=== PATIENT | male | born 1950 | race Caucasian/White ===

== ENCOUNTER 2016-08-25 09:55 | Emergency (ER) | payer MEDICARE ==
[~2016-08-25 09:55] MED LIST: DIGO0.259 PO; FINA5TAB2 PO; FLOM5CAP PO; FURO40TA2 PO; LISI40TAB PO; LOVA40TA PO; METF1000 PO; VERA24TASA PO; WARF-23 PO
[2016-08-25 11:40] LABS: BASO # 0.1 K/mm3 (0.0-0.2); BASO % 0.9 % (0.0-1.0); EOS # 0.1 K/mm3 (0.0-0.50); EOS % 0.7 % (0.0-3.0); LARGE UNSTAINED CELL # 0.1 K/mm3 (0.0-0.4); LARGE UNSTAINED CELL % 0.8 % (0.0-4.0); LYMPH # 1.1 K/mm3 (1.5-4.5); LYMPH % 7.8 % (24.0-44.0); MEAN CORPUSCULAR HEMOGLOBIN 31.8 pg (27.0-33.0); MEAN CORPUSCULAR HGB CONC 34.8 g/dl (32.0-36.5); MEAN CORPUSCULAR VOLUME 91.3 fl (80.0-96.0); MONO # 0.5 K/mm3 (0.0-0.8); MONO % 3.7 % (0.0-5.0); NEUTROPHILS # 11.4 K/mm3 (1.8-7.7); NEUTROPHILS % 86.1 % (36.0-66.0); PLATELET COUNT, AUTOMATED 242 k/mm3 (150-450); RED CELL DISTRIBUTION WIDTH 14.7 % (11.5-14.5); WHITE BLOOD COUNT 13.3 K/mm3 (4.0-10.0)
[2016-08-25 11:58] LABS: CALCIUM LEVEL 8.4 MG/DL (8.8-10.2); CREATININE FOR GFR 1.56 MG/DL (0.70-1.30); GLOMERULAR FILTRATION RATE 47.6 (>49); POTASSIUM SERUM 3.7 MEQ/L (3.5-5.1)
--- NOTE | 2016-08-25 12:13 | REP ---
RIGHT HIP AND PELVIS, THREE VIEWS: HISTORY: Trauma. The patient is status post right hip arthroplasty. There is no acute fracture or dislocation. There is narrowing of the left hip joint space with associated osteophyte formation and sclerosis. IMPRESSION: There is no acute fracture dislocation. Signed by Brian Stein MD 08/25/2016 12:16 P
--- NOTE | 2016-08-25 12:13 | REP ---
RIGHT FEMUR, THREE VIEWS: HISTORY: Trauma. The patient is status post right hip arthroplasty. There is no acute fracture or dislocation. There is narrowing of the knee joint spaces with associated osteophyte formation. IMPRESSION: There is no acute fracture or dislocation. Signed by Brian Stein MD 08/25/2016 12:15 P
--- NOTE | 2016-08-25 12:16 | REP ---
Clinical: Pain and swelling . Technique: Al scale and color Doppler evaluation using linear high frequency transducer. Findings: Ultrasound examination of the right lower extremity deep venous structures from the common femoral vein to the popliteal vein demonstrates normal compressibility flow and wave patterns in response to respiration and augmentation. There is no evidence for deep venous thrombosis. Impression: No evidence for deep venous thrombosis. Signed by Wicho Ramírez MD 08/25/2016 12:07 P
[2016-08-25 13:49] LABS: INR 12.09
[2016-08-25] MEDS ORDERED: PHYTONADIONE 5 MG TAB As Ordered ONE (14:24)
--- NOTE | 2016-08-25 14:50 | EDDOCDS ---
Physician Documentation [facility] Name: Andres Mejia Age: 66 yrs Sex: Male : 1950 Arrival Date: 08/25/2016 Time: 09:55 Bed I2 / M2 Private MD: Vivi Odom Abdul Disposition: 08/25/16 14:12 Discharged to Home/Self Care. Impression: Strain of adductor muscle, fascia and tendon of right thigh, Abnormal coagulation profile - coumadin coagulopathy, suprtherapeutic INR of 12 without bleeding. - Condition is Stable. - Discharge Instructions: Muscle Strain. - Medication Reconciliation, Local Pharmacy Hours form. - Follow up: Vivi Odom; When: 2 - 3 days; Reason: Recheck today's complaints. Follow up: Emergency Department; When: As needed; Reason: bleeding, increased swelling of thigh. - Problem is new. - Symptoms are unchanged. - Notes: recommend ice and tylenol as needed for pain and swelling. your coumadin level was 12 today. stop coumadin at this time, get repeat bloodwork on Sunday and follow up with Dr. Odom regarding further recommendations. return to ER if you develop bleeding or worsening swelling of thigh Historical: - Allergies: SULFA (SULFONAMIDES); - Home Meds: 1. finasteride oral Unknown oral once daily 2. metformin 1,000 mg Oral tab 1 tab 2 times per day 3. Prozac 40 mg Oral cap 1 cap once daily 4. digoxin 250 mcg Oral tab once daily 5. lovastatin Unknown Oral once daily 6. Coumadin 7.5mg mon-sun. 5mg sat and sun Oral tab once daily 7. Flomax 0.4 mg Oral cp24 twice a day 8. furosemide 40 mg Oral tab 2 times per day 9. lisinopril 40 mg Oral tab once daily 10. potassium chloride 10 mEq Oral cpER once daily 11. verapamil 240 mg Oral TbER twice a day - PMHx: Atrial Fib; BPH; Hypertension; diabetic neuropathy; - PSHx: Cataract Surgery- Left; Hip Arthroplasty, Right; Cataract Surgery- Right; Hernia repair; ROTATOR CUFF LEFT; Colonoscopy; cardioversion; - Social history: No barriers to communication noted, The patient speaks fluent Sami, Speaks appropriately for age, Smoking status: Patient states former smoker of tobacco. - Family history: Not pertinent. - : The pt / caregiver states he / she is on anticoagulants: coumadin. Home medication list is obtained from the patient. - Exposure Risk Screening:: None identified. Vital Signs: 08/25 09:56 BP 106 / 48; Pulse 74; Resp 18; Temp 97.0(O); Pulse Ox 100% on R/A; Weight 105.23 kg / ct3 231.99 lbs (R); Height 6 ft. 0 in. (182.88 cm) (R); Pain 2/10; 11:13 BP 97 / 53 RA; jmk 11:13 BP 94 / 54 LA; jmk 13:10 BP 126 / 60; Pulse 58; Resp 16; Temp 96.8; Pulse Ox 98% ; jmk 14:49 BP 123 / 60; Pulse 84; Resp 18; Temp 98.5(O); Pulse Ox 99% on R/A; kc3 09:56 Body Mass Index 31.46 (105.23 kg, 182.88 cm) ct3 MDM: 10:34 Financial registration complete. lg 10:39 Undress patient appropriately for examination ordered. ar2 11:12 IV Saline Lock ordered. ar2 11:12 NS 0.9% 1000 ml IV at bolus once ordered. ar2 11:12 Misc. Nursing Order ordered. ar2 11:14 US Lower Extremity R/O DVT Ordered. EDMS 11:14 Hip,AP,LAT to include Pelvis Ordered. EDMS 11:14 Femur Ordered. EDMS 11:15 CBC with Diff Ordered. EDMS 11:15 MED Profile Ordered. EDMS 11:15 Creatine Phosphokinase Ordered. EDMS 11:15 PT/INR Ordered. EDMS 12:31 [facility] [place] Agreement was scanned into [employer] and attached to record. lg 12:57 CBC with Diff Reviewed. ar2 12:57 MED Profile Reviewed. ar2 12:57 Creatine Phosphokinase Reviewed. ar2 13:01 Vital Signs ordered. ar2 13:48 Hip,AP,LAT to include Pelvis Reviewed. ar2 13:48 Femur Reviewed. ar2 13:48 US Lower Extremity R/O DVT Reviewed. ar2 14:11 Phytonadione 5 mg PO once ordered. ar2 14:11 PT/INR Reviewed. ar2 Administered Medications: 11:35 Drug: NS 0.9% 1000 ml Route: IV; Rate: bolus; Site: right hand; sherin 14:33 Drug: Phytonadione 5 mg [phytonadione (vitamin K1) 5 mg tablet (1 tabs)] Route: PO; kc3 Signatures: Dispatcher [employer] EDFeli Mckeon, RN RN srm Jay Mendoza, Reg Reg lg Kadeem Cardenas, PAMary PAMary ma2 Salome Melchor RN RN kc3 Matteo Jackson RN The chart was reviewed and I authenticate all verbal orders and agree with the evaluation and treatment provided.Attachments: 12:31 [facility] Payment Agreement lg MTDD
--- NOTE | 2016-08-25 14:50 | EDDOCDS ---
Nurse's Notes [facility] Name: Andres Mejia Age: 66 yrs Sex: Male : 1950 Arrival Date: 08/25/2016 Time: 09:55 Bed I2 / M2 Private MD: Vivi Louise Abdul Diagnosis: Strain of adductor muscle, fascia and tendon of right thigh;Abnormal coagulation profile-coumadin coagulopathy, suprtherapeutic INR of 12 without bleeding Presentation: 08/25 10:03 Presenting complaint: Patient states: right upper thigh pain since last night. no srm injury. sent here from dr louise's office to r/o DVT. Adult Sepsis Screening: The patient does not have new or worsening altered mentation. Patient's respiratory rate is less than 22. Systolic blood pressure is greater than 100. Patient has a qSOFA score of 0- Negative Sepsis Screen. Suicide/Homicide risk assessment- the patient denies having any suicidal and/or homicidal ideations and does not present with any other emotional, behavioral or mental health complaints. Status: Patient is not a patient services representative or dependent. Transition of care: patient was received from a primary care office; dr louise. 10:03 Acuity: CHRISTINE Level 3 srm 10:03 Method Of Arrival: Wheelchair srm Triage Assessment: 10:08 General: Appears in no apparent distress, Behavior is appropriate for age, cooperative. srm Pain: Pain currently is 3 out of 10 on a pain scale. Historical: - Allergies: SULFA (SULFONAMIDES); - Home Meds: 1. finasteride oral Unknown oral once daily 2. metformin 1,000 mg Oral tab 1 tab 2 times per day 3. Prozac 40 mg Oral cap 1 cap once daily 4. digoxin 250 mcg Oral tab once daily 5. lovastatin Unknown Oral once daily 6. Coumadin 7.5mg mon-fri. 5mg sat and sun Oral tab once daily 7. Flomax 0.4 mg Oral cp24 twice a day 8. furosemide 40 mg Oral tab 2 times per day 9. lisinopril 40 mg Oral tab once daily 10. potassium chloride 10 mEq Oral cpER once daily 11. verapamil 240 mg Oral TbER twice a day - PMHx: Atrial Fib; BPH; Hypertension; diabetic neuropathy; - PSHx: Cataract Surgery- Left; Hip Arthroplasty, Right; Cataract Surgery- Right; Hernia repair; ROTATOR CUFF LEFT; Colonoscopy; cardioversion; - Social history: No barriers to communication noted, The patient speaks fluent Luxembourgish, Speaks appropriately for age, Smoking status: Patient states former smoker of tobacco. - Family history: Not pertinent. - : The pt / caregiver states he / she is on anticoagulants: coumadin. Home medication list is obtained from the patient. - Exposure Risk Screening:: None identified. Screenin:52 Screening information is obtained from the patient. Fall risk: At risk due to gait kc3 disturbance, The following interventions are performed due to a positive Fall Risk Screen: Fall Risk is added to Special Handling on the patient Summary Screen. A Fall Risk Bracelet was applied to the patient. Side Rails are placed in the up position. A Call Jacques is given with instruction to call for help when getting out of bed. Fall Alert bracelet is placed on the patient. Assistance ADL's: requires no assistance with activities of daily living. Abuse/DV Screen: The patient / caregiver reports he/she is: not in a situation that causes fear, pain or injury. Nutritional screening: No deficits noted. Advance Directives: Currently, there is no health care proxy. home support is adequate. Assessment: 10:50 General: Appears in no apparent distress, comfortable, Behavior is appropriate for age, kc3 cooperative. Pain: Aggravated by weight bearing. Pain: Location: right leg Pain currently is 5 out of 10 on a pain scale. Neurological: Level of Consciousness is awake, alert, obeys commands, Oriented to person, place, time. Respiratory: Respiratory effort is even, unlabored, Respiratory pattern is regular, symmetrical. Derm: Skin is pink, warm & dry. Musculoskeletal: Circulation, motion, and sensation intact. 11:35 General: Appears Doppler pulses x 2 intact to right foot.. jmk 12:29 General: Appears in no apparent distress, comfortable, Behavior is appropriate for age, kc3 cooperative, Pt resting on stretcher with no complaints at this time. . Neurological: Level of Consciousness is awake, alert, obeys commands, Oriented to person, place, time. Respiratory: Respiratory effort is even, unlabored. Derm: Skin is pink, warm & dry. Musculoskeletal: Circulation, motion, and sensation intact. 13:11 General: Appears ambulated to bathroom with steady gait.. reports pain level as 2/10. jmk tolerant of activity.. 14:00 General: Appears in no apparent distress, comfortable, Behavior is appropriate for age, kc3 cooperative. Pain: Location: right leg. Neurological: Level of Consciousness is awake, alert, obeys commands, Oriented to person, place, time. Respiratory: Respiratory effort is even, unlabored. Derm: Skin is pink, warm & dry. Musculoskeletal: Circulation, motion, and sensation intact. 14:48 General: Appears in no apparent distress, comfortable, Behavior is appropriate for age, kc3 cooperative. Pain:. Neurological: Level of Consciousness is awake, alert, obeys commands, Oriented to person, place, time. Respiratory: Respiratory effort is even, unlabored. Derm: Skin is pink, warm & dry. Vital Signs: 09:56 BP 106 / 48; Pulse 74; Resp 18; Temp 97.0(O); Pulse Ox 100% on R/A; Weight 105.23 kg ct3 (R); Height 6 ft. 0 in. (182.88 cm) (R); Pain 2/10; 11:13 BP 97 / 53 RA; jmk 11:13 BP 94 / 54 LA; jmk 13:10 BP 126 / 60; Pulse 58; Resp 16; Temp 96.8; Pulse Ox 98% ; jmk 14:49 BP 123 / 60; Pulse 84; Resp 18; Temp 98.5(O); Pulse Ox 99% on R/A; kc3 09:56 Body Mass Index 31.46 (105.23 kg, 182.88 cm) ct3 Vitals: 09:56 Log In Time: August 25, 2016 at 09:53. RN notified that patient meets Red Flag ct3 criteria. ED Course: 09:56 Patient visited by Poonam Milian PCA. ct3 09:56 Vivi Louise is Private Physician. ct3 09:56 Patient moved to Waiting ct3 09:59 Patient moved to Pre RCE ct3 10:04 Triage Initiated srm 10:08 Patient moved to Triage 1 srm 10:20 Kadeem Cardenas PA-C is PHCP. ar2 10:20 Mary Mota MD is Attending Physician. ar2 10:22 Patient visited by Kadeem Cardenas PA-C. ar2 10:42 Patient moved to I2 / M2 srm 10:52 The patient / caregiver is instructed regarding the plan of care and ED course. kc3 10:53 Patient visited by Salome Melchor,JORGE. kc3 11:34 Patient visited by Salome Melchor RN. kc3 11:34 CBC with Diff Sent. jmk 11:34 MED Profile Sent. jmk 11:34 Creatine Phosphokinase Sent. jmk 11:34 PT/INR Sent. jmk 11:34 Inserted saline lock: 20 gauge in right hand. jmk 11:52 Patient moved to Ultrasound am10 12:00 Patient moved to I2 / M2 kc3 12:30 Patient visited by Salome Melchor RN. kc3 12:31 Patient name changed from Andres\Pablo\Angelina\S\Jackie\S\ to Andres\Pablo\Sandeep\S\Jackie. EDMS 12:31 [facility] Payment Agreement was scanned into [employer] and attached to record. lg 12:58 Hip,AP,LAT to include Pelvis Returned. EDMS 12:58 Femur Returned. EDMS 12:58 US Lower Extremity R/O DVT Returned. EDMS 13:12 Patient visited by Matteo Jackson RN. jmk 14:11 Vivi Louise is Referral Physician. ar2 14:49 Discontinued IV lock intact, bleeding controlled, pressure dressing applied, No kc3 redness/swelling at site. No procedures done that require assistance. Administered Medications: 11:35 Drug: NS 0.9% 1000 ml Route: IV; Rate: bolus; Site: right hand; jmk 14:33 Drug: Phytonadione 5 mg [phytonadione (vitamin K1) 5 mg tablet (1 tabs)] Route: PO; kc3 Order Results: Lab Order: CBC with Diff; SPEC'M 08/25/16 11:16 Test: WHITE BLOOD COUNT; Value: 13.3; Range: 4.0-10.0; Abnormal: Above high normal; Units: K/mm3; Status: F Test: RED BLOOD COUNT; Value: 3.65; Range: 4.30-6.10; Abnormal: Below low normal; Units: M/mm3; Status: F Test: HEMOGLOBIN; Value: 11.6; Range: 14.0-18.0; Abnormal: Below low normal; Units: g/dl; Status: F Test: HEMATOCRIT; Value: 33.4; Range: 42.0-52.0; Abnormal: Below low normal; Units: %; Status: F Test: MEAN CORPUSCULAR VOLUME; Value: 91.3; Range: 80.0-96.0; Units: fl; Status: F Test: MEAN CORPUSCULAR HEMOGLOBIN; Value: 31.8; Range: 27.0-33.0; Units: pg; Status: F Test: MEAN CORPUSCULAR HGB CONC; Value: 34.8; Range: 32.0-36.5; Units: g/dl; Status: F Test: RED CELL DISTRIBUTION WIDTH; Value: 14.7; Range: 11.5-14.5; Abnormal: Above high normal; Units: %; Status: F Test: PLATELET COUNT, AUTOMATED; Value: 242; Range: 150-450; Units: k/mm3; Status: F Test: NEUTROPHILS %; Value: 86.1; Range: 36.0-66.0; Abnormal: Above high normal; Units: %; Status: F Test: LYMPH %; Value: 7.8; Range: 24.0-44.0; Abnormal: Below low normal; Units: %; Status: F Test: MONO %; Value: 3.7; Range: 0.0-5.0; Units: %; Status: F Test: EOS %; Value: 0.7; Range: 0.0-3.0; Units: %; Status: F Test: BASO %; Value: 0.9; Range: 0.0-1.0; Units: %; Status: F Test: LARGE UNSTAINED CELL %; Value: 0.8; Range: 0.0-4.0; Units: %; Status: F Test: NEUTROPHILS #; Value: 11.4; Range: 1.8-7.7; Abnormal: Above high normal; Units: K/mm3; Status: F Test: LYMPH #; Value: 1.1; Range: 1.5-4.5; Abnormal: Below low normal; Units: K/mm3; Status: F Test: MONO #; Value: 0.5; Range: 0.0-0.8; Units: K/mm3; Status: F Test: EOS #; Value: 0.1; Range: 0.0-0.50; Units: K/mm3; Status: F Test: BASO #; Value: 0.1; Range: 0.0-0.2; Units: K/mm3; Status: F Test: LARGE UNSTAINED CELL #; Value: 0.1; Range: 0.0-0.4; Units: K/mm3; Status: F Lab Order: MED Profile; SPEC'08/25/16 11:16 Test: GLUCOSE, FASTING; Value: 103; Range: 80-110; Units: MG/DL; Status: F Test: BLOOD UREA NITROGEN; Value: 19; Range: 7-18; Abnormal: Above high normal; Units: MG/DL; Status: F Test: CREATININE FOR GFR; Value: 1.56; Range: 0.70-1.30; Abnormal: Above high normal; Units: MG/DL; Status: F Test: GLOMERULAR FILTRATION RATE; Value: 47.6; Range: >49; Abnormal: Below low normal; Status: F Test: SODIUM LEVEL; Value: 142; Range: 136-145; Units: MEQ/L; Status: F Test: POTASSIUM SERUM; Value: 3.7; Range: 3.5-5.1; Units: MEQ/L; Status: F Test: CHLORIDE LEVEL; Value: 115; Range: 98-107; Abnormal: Above high normal; Units: MEQ/L; Status: F Test: CARBON DIOXIDE LEVEL; Value: 21; Range: 21-32; Units: MEQ/L; Status: F Test: ANION GAP; Value: 6; Range: 8-16; Abnormal: Below low normal; Units: MEQ/L; Status: F Test: CALCIUM LEVEL; Value: 8.4; Range: 8.8-10.2; Abnormal: Below low normal; Units: MG/DL; Status: F Test Note: ; Units are mL/min/1.73 m2 Chronic Kidney Disease Staging per NKF: Stage I & II GFR >=60 Normal to Mildly Decreased Stage III GFR 30-59 Moderately Decreased Stage IV GFR 15-29 Severely Decreased Stage V GFR <15 Very Little GFR Left ESRD GFR <15 on COIL MAKER Lab Order: Creatine Phosphokinase; SPEC' 08/25/16 11:16 Test: CPK CREATINE PHOSPHOKINASE; Value: 72; Range: 39-308; Units: U/L; Status: F Lab Order: PT/INR; SPEC'08/25/16 11:16 Test: PROTHROMBIN TIME; Value: 91.8; Range: 12.3-14.5; Abnormal: Above high normal; Units: SECONDS; Status: F Test: INR; Value: 12.09; Abnormal: Above upper panic limits; Status: F Test Note: ; THERAPUTIC HUMAN INR VALUES INDICATIONS NORMAL RANGES PROPHYLAXIS/TREATMENT OF: VENOUS THROMBOSIS 2.0-3.0 PULMONARY EMBOLISM 2.0-3.0 PREVENTION OF SYSTEMIC EMBOLISM FROM: TISSUE HEART VALVES 2.0-3.0 ACUTE MYOCARDIAL INFARCTION 2.0-3.0 VALVULAR HEART DISEASE 2.0-3.0 ATRIAL FIBRILLATION 2.0-3.0 MECHANICAL VALVES(HIGH RISK) 2.5-3.5 RECURRENT MYOCARDIAL INFARCTION 2.5-3.5 Radiology Order: Hip,AP,LAT to include Pelvis Test: Hip,AP,LAT to include Pelvis REASON FOR EXAMINATION: recent trauma; RIGHT HIP AND PELVIS, THREE VIEWS:; ; HISTORY: Trauma.; ; The patient is status post right hip arthroplasty. There is no acute fracture or; dislocation. There is narrowing of the left hip joint space with associated; osteophyte formation and sclerosis.; ; IMPRESSION:; ; There is no acute fracture dislocation.; ; ; Signed by; Brian Stein MD 08/25/2016 12:16 P; Radiology Order: Femur Test: Femur REASON FOR EXAMINATION: recent trauma, mid thigh pain; RIGHT FEMUR, THREE VIEWS:; ; HISTORY: Trauma.; ; The patient is status post right hip arthroplasty. There is no acute fracture or; dislocation. There is narrowing of the knee joint spaces with associated; osteophyte formation.; ; IMPRESSION:; ; There is no acute fracture or dislocation.; ; ; Signed by; Brian Stein MD 08/25/2016 12:15 P; Radiology Order: US Lower Extremity R/O DVT Test: US Lower Extremity R/O DVT REASON FOR EXAMINATION: pain and swelling; Clinical: Pain and swelling .; ; Technique: Al scale and color Doppler evaluation using linear high frequency; transducer.; ; Findings:; Ultrasound examination of the right lower extremity deep venous structures from; the common femoral vein to the popliteal vein demonstrates normal compressibility; flow and wave patterns in response to respiration and augmentation. There is no; evidence for deep venous thrombosis.; ; Impression:; No evidence for deep venous thrombosis.; ; ; Signed by; Wicho Ramírez MD 08/25/2016 12:07 P; Outcome: 14:12 Discharge ordered by Provider. ar2 14:48 Discharge Assessment: Patient awake, alert and oriented x 3. No cognitive and/or kc3 functional deficits noted. Patient verbalized understanding of disposition instructions. patient administered narcotics - no. The following High Risk Discharge criteria are identified: None. Condition: stable. Discharge instructions given to patient, Instructed on discharge instructions, follow up and referral plans. Demonstrated understanding of instructions, Pt was receptive of discharge instructions/ teaching. Ultrasound Study completed. Property :Personal belongings accompany Pt. 14:49 Patient left the ED. kc3 Signatures: Dispatcher [employer] EDMS Matteo Jackson,RN RN Feli Boss RN RN srm Jay Mendoza, Reg Reg lg Sarah Clark am10 Kadeem Cardenas, PA-C PA-C ar2 Poonam Milian, OUTPATIENT CODER OUTPATIENT CODER ct3 Salome Melchor,RN RN kc3 Corrections: (The following items were deleted from the chart) 10:53 10:50 Pain: Location: right quadriceps Pain currently is 5 out of 10 on a pain scale. kc3 kc3 MTDD
--- NOTE | 2016-08-27 15:51 | EDDOCDS ---
Nurse's Notes [facility] Name: Andres Mejia Age: 66 yrs Sex: Male : 1950 Arrival Date: 08/25/2016 Time: 09:55 Bed I2 / M2 Private MD: Vivi Louise Abdul Diagnosis: Strain of adductor muscle, fascia and tendon of right thigh;Abnormal coagulation profile-coumadin coagulopathy, suprtherapeutic INR of 12 without bleeding Presentation: 08/25 10:03 Presenting complaint: Patient states: right upper thigh pain since last night. no srm injury. sent here from dr louise's office to r/o DVT. Adult Sepsis Screening: The patient does not have new or worsening altered mentation. Patient's respiratory rate is less than 22. Systolic blood pressure is greater than 100. Patient has a qSOFA score of 0- Negative Sepsis Screen. Suicide/Homicide risk assessment- the patient denies having any suicidal and/or homicidal ideations and does not present with any other emotional, behavioral or mental health complaints. Status: Patient is not a servicer coin machines or dependent. Transition of care: patient was received from a primary care office; dr louise. 10:03 Acuity: CHRISTINE Level 3 srm 10:03 Method Of Arrival: Wheelchair srm Triage Assessment: 10:08 General: Appears in no apparent distress, Behavior is appropriate for age, cooperative. srm Pain: Pain currently is 3 out of 10 on a pain scale. Historical: - Allergies: SULFA (SULFONAMIDES); - Home Meds: 1. finasteride oral Unknown oral once daily 2. metformin 1,000 mg Oral tab 1 tab 2 times per day 3. Prozac 40 mg Oral cap 1 cap once daily 4. digoxin 250 mcg Oral tab once daily 5. lovastatin Unknown Oral once daily 6. Coumadin 7.5mg mon-fri. 5mg sat and sun Oral tab once daily 7. Flomax 0.4 mg Oral cp24 twice a day 8. furosemide 40 mg Oral tab 2 times per day 9. lisinopril 40 mg Oral tab once daily 10. potassium chloride 10 mEq Oral cpER once daily 11. verapamil 240 mg Oral TbER twice a day - PMHx: Atrial Fib; BPH; Hypertension; diabetic neuropathy; - PSHx: Cataract Surgery- Left; Hip Arthroplasty, Right; Cataract Surgery- Right; Hernia repair; ROTATOR CUFF LEFT; Colonoscopy; cardioversion; - Social history: No barriers to communication noted, The patient speaks fluent Slovak, Speaks appropriately for age, Smoking status: Patient states former smoker of tobacco. - Family history: Not pertinent. - : The pt / caregiver states he / she is on anticoagulants: coumadin. Home medication list is obtained from the patient. - Exposure Risk Screening:: None identified. Screenin:52 Screening information is obtained from the patient. Fall risk: At risk due to gait kc3 disturbance, The following interventions are performed due to a positive Fall Risk Screen: Fall Risk is added to Special Handling on the patient Summary Screen. A Fall Risk Bracelet was applied to the patient. Side Rails are placed in the up position. A Call Jacques is given with instruction to call for help when getting out of bed. Fall Alert bracelet is placed on the patient. Assistance ADL's: requires no assistance with activities of daily living. Abuse/DV Screen: The patient / caregiver reports he/she is: not in a situation that causes fear, pain or injury. Nutritional screening: No deficits noted. Advance Directives: Currently, there is no health care proxy. home support is adequate. Assessment: 10:50 General: Appears in no apparent distress, comfortable, Behavior is appropriate for age, kc3 cooperative. Pain: Aggravated by weight bearing. Pain: Location: right leg Pain currently is 5 out of 10 on a pain scale. Neurological: Level of Consciousness is awake, alert, obeys commands, Oriented to person, place, time. Respiratory: Respiratory effort is even, unlabored, Respiratory pattern is regular, symmetrical. Derm: Skin is pink, warm & dry. Musculoskeletal: Circulation, motion, and sensation intact. 11:35 General: Appears Doppler pulses x 2 intact to right foot.. jmk 12:29 General: Appears in no apparent distress, comfortable, Behavior is appropriate for age, kc3 cooperative, Pt resting on stretcher with no complaints at this time. . Neurological: Level of Consciousness is awake, alert, obeys commands, Oriented to person, place, time. Respiratory: Respiratory effort is even, unlabored. Derm: Skin is pink, warm & dry. Musculoskeletal: Circulation, motion, and sensation intact. 13:11 General: Appears ambulated to bathroom with steady gait.. reports pain level as 2/10. jmk tolerant of activity.. 14:00 General: Appears in no apparent distress, comfortable, Behavior is appropriate for age, kc3 cooperative. Pain: Location: right leg. Neurological: Level of Consciousness is awake, alert, obeys commands, Oriented to person, place, time. Respiratory: Respiratory effort is even, unlabored. Derm: Skin is pink, warm & dry. Musculoskeletal: Circulation, motion, and sensation intact. 14:48 General: Appears in no apparent distress, comfortable, Behavior is appropriate for age, kc3 cooperative. Pain:. Neurological: Level of Consciousness is awake, alert, obeys commands, Oriented to person, place, time. Respiratory: Respiratory effort is even, unlabored. Derm: Skin is pink, warm & dry. Vital Signs: 09:56 BP 106 / 48; Pulse 74; Resp 18; Temp 97.0(O); Pulse Ox 100% on R/A; Weight 105.23 kg ct3 (R); Height 6 ft. 0 in. (182.88 cm) (R); Pain 2/10; 11:13 BP 97 / 53 RA; jmk 11:13 BP 94 / 54 LA; jmk 13:10 BP 126 / 60; Pulse 58; Resp 16; Temp 96.8; Pulse Ox 98% ; jmk 14:49 BP 123 / 60; Pulse 84; Resp 18; Temp 98.5(O); Pulse Ox 99% on R/A; kc3 09:56 Body Mass Index 31.46 (105.23 kg, 182.88 cm) ct3 Vitals: 09:56 Log In Time: August 25, 2016 at 09:53. RN notified that patient meets Red Flag ct3 criteria. ED Course: 09:56 Patient visited by Poonam Milian PCA. ct3 09:56 Vivi Louise is Private Physician. ct3 09:56 Patient moved to Waiting ct3 09:59 Patient moved to Pre RCE ct3 10:04 Triage Initiated srm 10:08 Patient moved to Triage 1 srm 10:20 Kadeem Cardenas PA-C is PHCP. ar2 10:20 Mary Mota MD is Attending Physician. ar2 10:22 Patient visited by Kadeem Cardenas PA-C. ar2 10:42 Patient moved to I2 / M2 srm 10:52 The patient / caregiver is instructed regarding the plan of care and ED course. kc3 10:53 Patient visited by Salome Melchor,JORGE. kc3 11:34 Patient visited by Salome Melchor RN. kc3 11:34 CBC with Diff Sent. jmk 11:34 MED Profile Sent. jmk 11:34 Creatine Phosphokinase Sent. jmk 11:34 PT/INR Sent. jmk 11:34 Inserted saline lock: 20 gauge in right hand. jmk 11:52 Patient moved to Ultrasound am10 12:00 Patient moved to I2 / M2 kc3 12:30 Patient visited by Salome Melchor,JORGE. kc3 12:31 Patient name changed from Andres\Pablo\Angelina\S\Jackie\S\ to Andres\Pablo\Sandeep\S\Jackie. EDMS 12:31 [facility] [place] Payment Agreement was scanned into [employer] and attached to record. lg 12:58 Hip,AP,LAT to include Pelvis Returned. EDMS 12:58 Femur Returned. EDMS 12:58 US Lower Extremity R/O DVT Returned. EDMS 13:12 Patient visited by Matteo Jackson RN. jmk 14:11 Vivi Louise is Referral Physician. ar2 14:49 Discontinued IV lock intact, bleeding controlled, pressure dressing applied, No kc3 redness/swelling at site. No procedures done that require assistance. 08/26 08:57 T-Sheet-- Draft Copy was scanned into [employer] and attached to record. gb 08:58 Radiology Report was scanned into [employer] and attached to record. gb Administered Medications: 08/25 11:35 Drug: NS 0.9% 1000 ml Route: IV; Rate: bolus; Site: right hand; jmk 14:33 Drug: Phytonadione 5 mg [phytonadione (vitamin K1) 5 mg tablet (1 tabs)] Route: PO; kc3 Order Results: Lab Order: CBC with Diff; SPEC'M 08/25/16 11:16 Test: WHITE BLOOD COUNT; Value: 13.3; Range: 4.0-10.0; Abnormal: Above high normal; Units: K/mm3; Status: F Test: RED BLOOD COUNT; Value: 3.65; Range: 4.30-6.10; Abnormal: Below low normal; Units: M/mm3; Status: F Test: HEMOGLOBIN; Value: 11.6; Range: 14.0-18.0; Abnormal: Below low normal; Units: g/dl; Status: F Test: HEMATOCRIT; Value: 33.4; Range: 42.0-52.0; Abnormal: Below low normal; Units: %; Status: F Test: MEAN CORPUSCULAR VOLUME; Value: 91.3; Range: 80.0-96.0; Units: fl; Status: F Test: MEAN CORPUSCULAR HEMOGLOBIN; Value: 31.8; Range: 27.0-33.0; Units: pg; Status: F Test: MEAN CORPUSCULAR HGB CONC; Value: 34.8; Range: 32.0-36.5; Units: g/dl; Status: F Test: RED CELL DISTRIBUTION WIDTH; Value: 14.7; Range: 11.5-14.5; Abnormal: Above high normal; Units: %; Status: F Test: PLATELET COUNT, AUTOMATED; Value: 242; Range: 150-450; Units: k/mm3; Status: F Test: NEUTROPHILS %; Value: 86.1; Range: 36.0-66.0; Abnormal: Above high normal; Units: %; Status: F Test: LYMPH %; Value: 7.8; Range: 24.0-44.0; Abnormal: Below low normal; Units: %; Status: F Test: MONO %; Value: 3.7; Range: 0.0-5.0; Units: %; Status: F Test: EOS %; Value: 0.7; Range: 0.0-3.0; Units: %; Status: F Test: BASO %; Value: 0.9; Range: 0.0-1.0; Units: %; Status: F Test: LARGE UNSTAINED CELL %; Value: 0.8; Range: 0.0-4.0; Units: %; Status: F Test: NEUTROPHILS #; Value: 11.4; Range: 1.8-7.7; Abnormal: Above high normal; Units: K/mm3; Status: F Test: LYMPH #; Value: 1.1; Range: 1.5-4.5; Abnormal: Below low normal; Units: K/mm3; Status: F Test: MONO #; Value: 0.5; Range: 0.0-0.8; Units: K/mm3; Status: F Test: EOS #; Value: 0.1; Range: 0.0-0.50; Units: K/mm3; Status: F Test: BASO #; Value: 0.1; Range: 0.0-0.2; Units: K/mm3; Status: F Test: LARGE UNSTAINED CELL #; Value: 0.1; Range: 0.0-0.4; Units: K/mm3; Status: F Lab Order: MED Profile; SPEC'M 08/25/16 11:16 Test: GLUCOSE, FASTING; Value: 103; Range: 80-110; Units: MG/DL; Status: F Test: BLOOD UREA NITROGEN; Value: 19; Range: 7-18; Abnormal: Above high normal; Units: MG/DL; Status: F Test: CREATININE FOR GFR; Value: 1.56; Range: 0.70-1.30; Abnormal: Above high normal; Units: MG/DL; Status: F Test: GLOMERULAR FILTRATION RATE; Value: 47.6; Range: >49; Abnormal: Below low normal; Status: F Test: SODIUM LEVEL; Value: 142; Range: 136-145; Units: MEQ/L; Status: F Test: POTASSIUM SERUM; Value: 3.7; Range: 3.5-5.1; Units: MEQ/L; Status: F Test: CHLORIDE LEVEL; Value: 115; Range: 98-107; Abnormal: Above high normal; Units: MEQ/L; Status: F Test: CARBON DIOXIDE LEVEL; Value: 21; Range: 21-32; Units: MEQ/L; Status: F Test: ANION GAP; Value: 6; Range: 8-16; Abnormal: Below low normal; Units: MEQ/L; Status: F Test: CALCIUM LEVEL; Value: 8.4; Range: 8.8-10.2; Abnormal: Below low normal; Units: MG/DL; Status: F Test Note: ; Units are mL/min/1.73 m2 Chronic Kidney Disease Staging per NKF: Stage I & II GFR >=60 Normal to Mildly Decreased Stage III GFR 30-59 Moderately Decreased Stage IV GFR 15-29 Severely Decreased Stage V GFR <15 Very Little GFR Left ESRD GFR <15 on [employer] Lab Order: Creatine Phosphokinase; SPEC'M 08/25/16 11:16 Test: CPK CREATINE PHOSPHOKINASE; Value: 72; Range: 39-308; Units: U/L; Status: F Lab Order: PT/INR; SPEC'Sarmad 08/25/16 11:16 Test: PROTHROMBIN TIME; Value: 91.8; Range: 12.3-14.5; Abnormal: Above high normal; Units: SECONDS; Status: F Test: INR; Value: 12.09; Abnormal: Above upper panic limits; Status: F Test Note: ; THERAPUTIC HUMAN INR VALUES INDICATIONS NORMAL RANGES PROPHYLAXIS/TREATMENT OF: VENOUS THROMBOSIS 2.0-3.0 PULMONARY EMBOLISM 2.0-3.0 PREVENTION OF SYSTEMIC EMBOLISM FROM: TISSUE HEART VALVES 2.0-3.0 ACUTE MYOCARDIAL INFARCTION 2.0-3.0 VALVULAR HEART DISEASE 2.0-3.0 ATRIAL FIBRILLATION 2.0-3.0 MECHANICAL VALVES(HIGH RISK) 2.5-3.5 RECURRENT MYOCARDIAL INFARCTION 2.5-3.5 Radiology Order: Hip,AP,LAT to include Pelvis Test: Hip,AP,LAT to include Pelvis REASON FOR EXAMINATION: recent trauma; RIGHT HIP AND PELVIS, THREE VIEWS:; ; HISTORY: Trauma.; ; The patient is status post right hip arthroplasty. There is no acute fracture or; dislocation. There is narrowing of the left hip joint space with associated; osteophyte formation and sclerosis.; ; IMPRESSION:; ; There is no acute fracture dislocation.; ; ; Signed by; Brian Stein MD 08/25/2016 12:16 P; Radiology Order: Femur Test: Femur REASON FOR EXAMINATION: recent trauma, mid thigh pain; RIGHT FEMUR, THREE VIEWS:; ; HISTORY: Trauma.; ; The patient is status post right hip arthroplasty. There is no acute fracture or; dislocation. There is narrowing of the knee joint spaces with associated; osteophyte formation.; ; IMPRESSION:; ; There is no acute fracture or dislocation.; ; ; Signed by; Brian Stein MD 08/25/2016 12:15 P; Radiology Order: US Lower Extremity R/O DVT Test: US Lower Extremity R/O DVT REASON FOR EXAMINATION: pain and swelling; Clinical: Pain and swelling .; ; Technique: Al scale and color Doppler evaluation using linear high frequency; transducer.; ; Findings:; Ultrasound examination of the right lower extremity deep venous structures from; the common femoral vein to the popliteal vein demonstrates normal compressibility; flow and wave patterns in response to respiration and augmentation. There is no; evidence for deep venous thrombosis.; ; Impression:; No evidence for deep venous thrombosis.; ; ; Signed by; Wicho Ramíerz MD 08/25/2016 12:07 P; Outcome: 14:12 Discharge ordered by Provider. ar2 14:48 Discharge Assessment: Patient awake, alert and oriented x 3. No cognitive and/or kc3 functional deficits noted. Patient verbalized understanding of disposition instructions. patient administered narcotics - no. The following High Risk Discharge criteria are identified: None. Condition: stable. Discharge instructions given to patient, Instructed on discharge instructions, follow up and referral plans. Demonstrated understanding of instructions, Pt was receptive of discharge instructions/ teaching. Ultrasound Study completed. Property :Personal belongings accompany Pt. 14:49 Patient left the ED. kc3 Signatures: Dispatcher [employer] EDMS Matteo Jackson RN RN jmk Michelson, Staci RN RN [facility] Yan, Yokasta, Reg Reg gb GanJay tracy, Reg Reg lg Monrosanna, Sarah am10 Kadeem Cardenas PA-C PA-Susie ar2 Poonam Milian, MEDIA PRODUCER MEDIA PRODUCER ct3 Salome Melchor,RN RN kc3 Corrections: (The following items were deleted from the chart) 10:53 10:50 Pain: Location: right quadriceps Pain currently is 5 out of 10 on a pain scale. kc3 kc3 Chart Complete MTDD
--- NOTE | 2016-08-27 15:51 | EDDOCDS ---
Physician Documentation [facility] Name: Andres Mejia Age: 66 yrs Sex: Male : 1950 Arrival Date: 08/25/2016 Time: 09:55 Bed I2 / M2 Private MD: Vivi Odom Abdul Disposition: 08/25/16 14:12 Discharged to Home/Self Care. Impression: Strain of adductor muscle, fascia and tendon of right thigh, Abnormal coagulation profile - coumadin coagulopathy, suprtherapeutic INR of 12 without bleeding. - Condition is Stable. - Discharge Instructions: Muscle Strain. - Medication Reconciliation, Local Pharmacy Hours form. - Follow up: Vivi Odom; When: 2 - 3 days; Reason: Recheck today's complaints. Follow up: Emergency Department; When: As needed; Reason: bleeding, increased swelling of thigh. - Problem is new. - Symptoms are unchanged. - Notes: recommend ice and tylenol as needed for pain and swelling. your coumadin level was 12 today. stop coumadin at this time, get repeat bloodwork on Sunday and follow up with Dr. Odom regarding further recommendations. return to ER if you develop bleeding or worsening swelling of thigh Historical: - Allergies: SULFA (SULFONAMIDES); - Home Meds: 1. finasteride oral Unknown oral once daily 2. metformin 1,000 mg Oral tab 1 tab 2 times per day 3. Prozac 40 mg Oral cap 1 cap once daily 4. digoxin 250 mcg Oral tab once daily 5. lovastatin Unknown Oral once daily 6. Coumadin 7.5mg mon-sun. 5mg sat and sun Oral tab once daily 7. Flomax 0.4 mg Oral cp24 twice a day 8. furosemide 40 mg Oral tab 2 times per day 9. lisinopril 40 mg Oral tab once daily 10. potassium chloride 10 mEq Oral cpER once daily 11. verapamil 240 mg Oral TbER twice a day - PMHx: Atrial Fib; BPH; Hypertension; diabetic neuropathy; - PSHx: Cataract Surgery- Left; Hip Arthroplasty, Right; Cataract Surgery- Right; Hernia repair; ROTATOR CUFF LEFT; Colonoscopy; cardioversion; - Social history: No barriers to communication noted, The patient speaks fluent Welsh, Speaks appropriately for age, Smoking status: Patient states former smoker of tobacco. - Family history: Not pertinent. - : The pt / caregiver states he / she is on anticoagulants: coumadin. Home medication list is obtained from the patient. - Exposure Risk Screening:: None identified. Vital Signs: 08/25 09:56 BP 106 / 48; Pulse 74; Resp 18; Temp 97.0(O); Pulse Ox 100% on R/A; Weight 105.23 kg / ct3 231.99 lbs (R); Height 6 ft. 0 in. (182.88 cm) (R); Pain 2/10; 11:13 BP 97 / 53 RA; jmk 11:13 BP 94 / 54 LA; jmk 13:10 BP 126 / 60; Pulse 58; Resp 16; Temp 96.8; Pulse Ox 98% ; jmk 14:49 BP 123 / 60; Pulse 84; Resp 18; Temp 98.5(O); Pulse Ox 99% on R/A; kc3 09:56 Body Mass Index 31.46 (105.23 kg, 182.88 cm) ct3 MDM: 10:34 Financial registration complete. lg 10:39 Undress patient appropriately for examination ordered. ar2 11:12 IV Saline Lock ordered. ar2 11:12 NS 0.9% 1000 ml IV at bolus once ordered. ar2 11:12 Misc. Nursing Order ordered. ar2 11:14 US Lower Extremity R/O DVT Ordered. EDMS 11:14 Hip,AP,LAT to include Pelvis Ordered. EDMS 11:14 Femur Ordered. EDMS 11:15 CBC with Diff Ordered. EDMS 11:15 MED Profile Ordered. EDMS 11:15 Creatine Phosphokinase Ordered. EDMS 11:15 PT/INR Ordered. EDMS 12:31 [facility] Payment Agreement was scanned into [employer] and attached to record. lg 12:57 CBC with Diff Reviewed. ar2 12:57 MED Profile Reviewed. ar2 12:57 Creatine Phosphokinase Reviewed. ar2 13:01 Vital Signs ordered. ar2 13:48 Hip,AP,LAT to include Pelvis Reviewed. ar2 13:48 Femur Reviewed. ar2 13:48 US Lower Extremity R/O DVT Reviewed. ar2 14:11 Phytonadione 5 mg PO once ordered. ar2 14:11 PT/INR Reviewed. ar2 08/26 08:57 T-Sheet-- Draft Copy was scanned into [employer] and attached to record. gb 08:58 Radiology Report was scanned into [employer] and attached to record. gb Administered Medications: 08/25 11:35 Drug: NS 0.9% 1000 ml Route: IV; Rate: bolus; Site: right hand; sherin 14:33 Drug: Phytonadione 5 mg [phytonadione (vitamin K1) 5 mg tablet (1 tabs)] Route: PO; kc3 Signatures: Dispatcher [employer] EDMS Feli Hair, RN RN srm Yokasta Heredia, Reg Reg gb Jay Mendoza, Reg Reg lg Kadeem Cardenas PA-C PAMary ar2 Salome Melchor RN RN kc3 Matteo Jackson RN The chart was reviewed and I authenticate all verbal orders and agree with the evaluation and treatment provided.Attachments: 12:31 [facility] Payment Agreement lg 08/26 08:57 T-Sheet-- Draft Copy Chart Complete MTDD
--- NOTE | 2016-08-27 15:51 | EDDOCDS ---
Physician Documentation [facility] Name: Andres Mejia Age: 66 yrs Sex: Male : 1950 Arrival Date: 08/25/2016 Time: 09:55 Bed I2 / M2 Private MD: Vivi Odom Abdul Disposition: 08/25/16 14:12 Discharged to Home/Self Care. Impression: Strain of adductor muscle, fascia and tendon of right thigh, Abnormal coagulation profile - coumadin coagulopathy, suprtherapeutic INR of 12 without bleeding. - Condition is Stable. - Discharge Instructions: Muscle Strain. - Medication Reconciliation, Local Pharmacy Hours form. - Follow up: Vivi Odom; When: 2 - 3 days; Reason: Recheck today's complaints. Follow up: Emergency Department; When: As needed; Reason: bleeding, increased swelling of thigh. - Problem is new. - Symptoms are unchanged. - Notes: recommend ice and tylenol as needed for pain and swelling. your coumadin level was 12 today. stop coumadin at this time, get repeat bloodwork on Sunday and follow up with Dr. Odom regarding further recommendations. return to ER if you develop bleeding or worsening swelling of thigh Historical: - Allergies: SULFA (SULFONAMIDES); - Home Meds: 1. finasteride oral Unknown oral once daily 2. metformin 1,000 mg Oral tab 1 tab 2 times per day 3. Prozac 40 mg Oral cap 1 cap once daily 4. digoxin 250 mcg Oral tab once daily 5. lovastatin Unknown Oral once daily 6. Coumadin 7.5mg mon-sun. 5mg sat and sun Oral tab once daily 7. Flomax 0.4 mg Oral cp24 twice a day 8. furosemide 40 mg Oral tab 2 times per day 9. lisinopril 40 mg Oral tab once daily 10. potassium chloride 10 mEq Oral cpER once daily 11. verapamil 240 mg Oral TbER twice a day - PMHx: Atrial Fib; BPH; Hypertension; diabetic neuropathy; - PSHx: Cataract Surgery- Left; Hip Arthroplasty, Right; Cataract Surgery- Right; Hernia repair; ROTATOR CUFF LEFT; Colonoscopy; cardioversion; - Social history: No barriers to communication noted, The patient speaks fluent Kyrgyz, Speaks appropriately for age, Smoking status: Patient states former smoker of tobacco. - Family history: Not pertinent. - : The pt / caregiver states he / she is on anticoagulants: coumadin. Home medication list is obtained from the patient. - Exposure Risk Screening:: None identified. Vital Signs: 08/25 09:56 BP 106 / 48; Pulse 74; Resp 18; Temp 97.0(O); Pulse Ox 100% on R/A; Weight 105.23 kg / ct3 231.99 lbs (R); Height 6 ft. 0 in. (182.88 cm) (R); Pain 2/10; 11:13 BP 97 / 53 RA; jmk 11:13 BP 94 / 54 LA; jmk 13:10 BP 126 / 60; Pulse 58; Resp 16; Temp 96.8; Pulse Ox 98% ; jmk 14:49 BP 123 / 60; Pulse 84; Resp 18; Temp 98.5(O); Pulse Ox 99% on R/A; kc3 09:56 Body Mass Index 31.46 (105.23 kg, 182.88 cm) ct3 MDM: 10:34 Financial registration complete. lg 10:39 Undress patient appropriately for examination ordered. ar2 11:12 IV Saline Lock ordered. ar2 11:12 NS 0.9% 1000 ml IV at bolus once ordered. ar2 11:12 Misc. Nursing Order ordered. ar2 11:14 US Lower Extremity R/O DVT Ordered. EDMS 11:14 Hip,AP,LAT to include Pelvis Ordered. EDMS 11:14 Femur Ordered. EDMS 11:15 CBC with Diff Ordered. EDMS 11:15 MED Profile Ordered. EDMS 11:15 Creatine Phosphokinase Ordered. EDMS 11:15 PT/INR Ordered. EDMS 12:31 [facility] Payment Agreement was scanned into [employer] and attached to record. lg 12:57 CBC with Diff Reviewed. ar2 12:57 MED Profile Reviewed. ar2 12:57 Creatine Phosphokinase Reviewed. ar2 13:01 Vital Signs ordered. ar2 13:48 Hip,AP,LAT to include Pelvis Reviewed. ar2 13:48 Femur Reviewed. ar2 13:48 US Lower Extremity R/O DVT Reviewed. ar2 14:11 Phytonadione 5 mg PO once ordered. ar2 14:11 PT/INR Reviewed. ar2 08/26 08:57 T-Sheet-- Draft Copy was scanned into [employer] and attached to record. gb 08:58 Radiology Report was scanned into [employer] and attached to record. gb Administered Medications: 08/25 11:35 Drug: NS 0.9% 1000 ml Route: IV; Rate: bolus; Site: right hand; sherin 14:33 Drug: Phytonadione 5 mg [phytonadione (vitamin K1) 5 mg tablet (1 tabs)] Route: PO; kc3 Signatures: Dispatcher [employer] EDMS Feli Hair, RN RN srm Yokasta Heredia, Reg Reg gb Jay Mendoza, Reg Reg lg Kadeem Cardenas PA-C PAMary ar2 Salome Melchor RN RN kc3 Matteo Jackson RN The chart was reviewed and I authenticate all verbal orders and agree with the evaluation and treatment provided.Attachments: 12:31 [facility] Payment Agreement lg 08/26 08:57 T-Sheet-- Draft Copy Chart Complete MTDD
== END 2016-08-25 14:49 | disposition home or self-care (01) ==
LOC: M ED 09:55
DX: S76.111A Strain of right quadriceps muscle, fascia and tendon, initial encounter (principal); X58.XXXA Exposure to other specified factors, initial encounter; Y92.89 Other specified places as the place of occurrence of the external cause; Y93.89 Activity, other specified; Y99.8 Other external cause status; R79.1 Abnormal coagulation profile; I48.91 Unspecified atrial fibrillation; N40.0 Benign prostatic hyperplasia without lower urinary tract symptoms; I10 Essential (primary) hypertension; E11.42 Type 2 diabetes mellitus with diabetic polyneuropathy; Z87.891 Personal history of nicotine dependence; Z79.01 Long term (current) use of anticoagulants; Z79.899 Other long term (current) drug therapy; Z79.84 Long term (current) use of oral hypoglycemic drugs; Z88.2 Allergy status to sulfonamides

== ENCOUNTER → 2016-08-28 | Outpatient (CLI) | payer MEDICARE ==
[2016-08-28 07:26] LABS: INR 2.49
== END | disposition home or self-care (01) ==
LOC: M LAB 06:39
PROVIDERS: ATTEND Family Medicine
DX: I48.91 Unspecified atrial fibrillation (principal)

== ENCOUNTER → 2016-09-04 | Outpatient (CLI) | payer MEDICARE ==
[2016-09-04 13:36] LABS: INR 2.41
== END | disposition home or self-care (01) ==
LOC: M LAB 13:05
PROVIDERS: ATTEND Family Medicine
DX: Z51.81 Encounter for therapeutic drug level monitoring (principal); Z79.01 Long term (current) use of anticoagulants; I48.91 Unspecified atrial fibrillation

== ENCOUNTER → 2016-09-18 | Outpatient (REF) | payer MEDICARE ==
[2016-09-18 10:21] LABS: INR 1.53
== END | disposition home or self-care (01) ==
LOC: M LABSMT 09:36
PROVIDERS: ATTEND Family Medicine
DX: I48.91 Unspecified atrial fibrillation (principal)

== ENCOUNTER → 2017-02-14 | Outpatient (CLI) | payer MEDICARE ==
[~2017-02-14] MED LIST changes: -METF1000 PO; +METF10004 PO
[2017-02-14 10:38] LABS: MEAN CORPUSCULAR HEMOGLOBIN 32.4 pg (27.0-33.0); MEAN CORPUSCULAR HGB CONC 34.9 g/dl (32.0-36.5); MEAN CORPUSCULAR VOLUME 92.9 fl (80.0-96.0); RED CELL DISTRIBUTION WIDTH 12.8 % (11.5-14.5); WHITE BLOOD COUNT 7.4 K/mm3 (4.0-10.0)
[2017-02-14 12:16] LABS: ALBUMIN/GLOBULIN RATIO 1.14 (1.00-1.93); BILIRUBIN,TOTAL 0.6 MG/DL (0.2-1.0); CALCIUM LEVEL 9.8 MG/DL (8.8-10.2); CREATININE FOR GFR 1.58 MG/DL (0.70-1.30); GLOMERULAR FILTRATION RATE 46.9 (>49); POTASSIUM SERUM 4.3 MEQ/L (3.5-5.1); TOTAL PROTEIN 7.5 GM/DL (6.4-8.2)
== END ==
LOC: M LAB 09:34
PROVIDERS: ATTEND Family Medicine
DX: I10 Essential (primary) hypertension (principal); N40.0 Benign prostatic hyperplasia without lower urinary tract symptoms

== ENCOUNTER → 2017-05-14 | Outpatient (CLI) | payer MEDICARE ==
[2017-05-14 11:01] LABS: CREATININE FOR GFR 1.42 MG/DL (0.70-1.30); GLOMERULAR FILTRATION RATE 53.1 (>49)
== END ==
LOC: M LAB 10:22
PROVIDERS: ATTEND Internal Medicine Pulmonary Disease
DX: R91.8 Other nonspecific abnormal finding of lung field (principal)

== ENCOUNTER → 2017-05-16 | Outpatient (CLI) | payer MEDICARE ==
[~2017-05-16] MED LIST changes: +ISOVUE-370 76% 100ML VIAL (Q9967) As Ordered ONE
--- NOTE | 2017-05-16 13:29 | REP ---
Chest CT with IV contrast: History: Abnormal lung field finding. Comparison chest CT studies: The most remote is from October 21, 2014. The most recent is from May 26, 2016. CT contrast dose: 75 mL of intravenous Isovue 370. CT findings: There has been no change in the size or appearance of the 10 mm nodule in the medial basal segment of the right lower lobe. This is seen today on image number 66 of 116 in series 201. It is unchanged from October 30, 2014 prior study and is therefore felt to be consistent with a benign nodule. There are two adjacent fibronodular densities along the minor fissure in the right upper lobe which are also unchanged from the comparison study. This measures 2.0 cm in greatest dimension and this measurement is unchanged from October of 2014 as well. The smaller nodule superior to this measures 6 mm in greatest dimension and this is felt to be unchanged from the October 30, 2014 study as well. These two adjacent nodular opacities are displayed on image numbers 50 and 44 of 116 in series 201 of today's study. No new pulmonary nodule is seen on either side. No hilar or mediastinal mass or adenopathy is seen. There is a small pericardial effusion visible. This is essentially unchanged from the October 2014 study. No pleural effusion is seen. No adrenal lesion is observed. Gallstones are noted within the gallbladder. There is coronary artery vascular calcification. No hilar or mediastinal mass or adenopathy is seen. No bony destructive lesion is visible. Impression: 1. Stable pulmonary nodules in the right upper lobe and lower lobe, unchanged from October 2014 prior study consistent with benign nodular densities. 2. Small pericardial effusion stable from the prior study. 3. Cholelithiasis. 4. Vascular calcification in the left coronary artery. Signed by Kurt Tovar MD 05/16/2017 03:54 P
== END ==
LOC: M RAD 10:54
PROVIDERS: ATTEND Internal Medicine Pulmonary Disease
DX: R91.8 Other nonspecific abnormal finding of lung field (principal)
CPT/HCPCS: 71260; Q9967

== ENCOUNTER → 2018-01-29 | Outpatient (CLI) | payer MEDICARE ==
[2018-01-29 11:06] LABS: HEMATOCRIT 38.6 % (42.0-52.0); HEMOGLOBIN 13.4 g/dl (13.5-17.5); MEAN CORPUSCULAR HEMOGLOBIN 31.1 pg (27.0-33.0); MEAN CORPUSCULAR HGB CONC 34.7 g/dl (32.0-36.5); MEAN CORPUSCULAR VOLUME 89.6 fl (80.0-96.0); PLATELET COUNT, AUTOMATED 185 10^3/uL (150-450); RED BLOOD COUNT 4.31 10^6/uL (4.30-6.10); RED CELL DISTRIBUTION WIDTH 12.5 % (11.5-14.5); WHITE BLOOD COUNT 5.5 10^3/uL (4.0-10.0)
[2018-01-29 11:45] LABS: TOTAL 25(OH) VITAMIN D 12.4 NG/ML (30.0-100.0)
[2018-01-29 13:25] LABS: ALBUMIN 3.7 GM/DL (3.2-5.2); ALBUMIN/GLOBULIN RATIO 1.16 (1.00-1.93); ALKALINE PHOSPHATASE 61 U/L (45-117); ALT/SGPT 23 U/L (12-78); ANION GAP 13 MEQ/L (8-16); AST/SGOT 9 U/L (7-37); BILIRUBIN,TOTAL 0.7 MG/DL (0.2-1.0); BLOOD UREA NITROGEN 18 MG/DL (7-18); CALCIUM LEVEL 8.9 MG/DL (8.8-10.2); CARBON DIOXIDE LEVEL 25 MEQ/L (21-32); CHLORIDE LEVEL 104 MEQ/L (98-107); CHOLESTEROL LEVEL 118 MG/DL (<200); CHOLESTEROL RISK RATIO 2.878 (<5); CREATININE FOR GFR 1.42 MG/DL (0.70-1.30); GLOMERULAR FILTRATION RATE 52.9 (>49); GLUCOSE, FASTING 132 MG/DL (70-100); HDL CHOLESTEROL 41 MG/DL (>40); NON-HDL-C 77 MG/DL; POTASSIUM SERUM 3.9 MEQ/L (3.5-5.1); SODIUM LEVEL 142 MEQ/L (136-145); TOTAL PROTEIN 6.9 GM/DL (6.4-8.2); TRIGLYCERIDES LEVEL 130 MG/DL (<150)
[2018-01-29 18:02] LABS: ESTIMATED AVERAGE GLUCOSE 143 MG/DL (60-110); HEMOGLOBIN A1c 6.6 %
== END ==
LOC: M LAB 10:30
DX: I10 Essential (primary) hypertension (principal); N40.1 Benign prostatic hyperplasia with lower urinary tract symptoms
CPT/HCPCS: 84443

== ENCOUNTER 2018-11-14 11:14 | Emergency (ER) | payer MEDICARE ==
[~2018-11-14] VITALS: Ht 182.9 cm; Wt 106.8 kg
[~2018-11-14 11:14] MED LIST changes: +FLOM0.4C39 PO; -FLOM5CAP PO; -ISOVUE-370 76% 100ML VIAL (Q9967) As Ordered ONE; +LISI40TA PO; -LISI40TAB PO
[2018-11-14] MEDS ORDERED: POTA10TA14 PO (11:34)
[2018-11-14] MEDS ORDERED: ELIQ5TAB PO (11:34)
[2018-11-14] MEDS ORDERED: FLUO40CA PO (11:34)
[2018-11-14] MEDS ORDERED: LORazepam 1 MG TAB PO STA (12:01)
--- NOTE | 2018-11-14 12:35 | REP ---
Portable chest x-ray: Single view. History: Chest pain. Comparison portable chest x-ray is from June 24, 2015. Findings: The patient is rotated somewhat to the right. EKG monitoring electrodes overlie the chest. Heart is enlarged unchanged. The lungs are well inflated and clear. The pleural angles are sharp. Pulmonary vasculature is not increased. Impression: Cardiomegaly. Otherwise no acute disease. Electronically Signed by Kurt Tovar MD 11/14/2018 12:26 P
[2018-11-14 12:42] LABS: BASO # 0.1 10^3/uL (0.0-0.2); BASO % 0.9 % (0.0-1.0); EOS # 0.1 10^3/uL (0.0-0.50); EOS % 1.3 % (0.0-3.0); HEMATOCRIT 40.1 % (42.0-52.0); HEMOGLOBIN 13.8 g/dl (13.5-17.5); LYMPH % 15.4 % (24.0-44.0); MEAN CORPUSCULAR HEMOGLOBIN 32.2 pg (27.0-33.0); MEAN CORPUSCULAR HGB CONC 34.4 g/dl (32.0-36.5); MEAN CORPUSCULAR VOLUME 93.7 fl (80.0-96.0); MONO # 0.4 10^3/uL (0.0-0.8); MONO % 6.1 % (0.0-5.0); NEUTROPHILS % 74.8 % (36.0-66.0); PLATELET COUNT, AUTOMATED 236 10^3/uL (150-450); RED BLOOD COUNT 4.28 10^6/uL (4.30-6.10); WHITE BLOOD COUNT 6.7 10^3/uL (4.0-10.0)
[2018-11-14 13:08] LABS: BLOOD UREA NITROGEN 20 MG/DL (7-18); CALCIUM LEVEL 9.7 MG/DL (8.8-10.2); CARBON DIOXIDE LEVEL 28 MEQ/L (21-32); CHLORIDE LEVEL 103 MEQ/L (98-107); CPK CREATINE PHOSPHOKINASE 61 U/L (39-308); CREATININE FOR GFR 1.27 MG/DL (0.70-1.30); GLUCOSE, FASTING 163 MG/DL (70-100); MB/CK RELATIVE INDEX 3.44 (< OR =4); POTASSIUM SERUM 4.4 MEQ/L (3.5-5.1); SODIUM LEVEL 137 MEQ/L (136-145); TROPONIN I < 0.02 NG/ML (< 0.10)
[2018-11-14 15:32] VITALS: BP 123/66
--- NOTE | 2018-11-14 19:59 | ECGEPIP ---
Stationary ECG Study [facility] - ED Test Date: 2018-11-14 Pat Name: FOREST GOMEZ Department: Room: - Gender: M [employer]: : 1950 Requested By: Vijay Patel Order Number: [id number] Reading MD: Mary Mota Measurements Intervals [place] Rate: 117 P: IA: 0 QRS: 41 QRSD: 103 T: 35 QT: 304 QTc: 424 Interpretive Statements ATRIAL FIBRILLATION WITH RAPID VENTRICULAR RESPONSE ABNORMAL RHYTHM ECG NSTTW ABNORMALITY LOW VOLTAGE LIMB INCREASED RATE 06/24/15 Electronically Signed On 11-14-2018 19:59:43 EDT by Mary Mota
== END 2018-11-14 15:35 | disposition home or self-care (01) ==
LOC: M ED 11:14
DX: F41.9 Anxiety disorder, unspecified (principal); I48.91 Unspecified atrial fibrillation; I45.19 Other right bundle-branch block; E11.9 Type 2 diabetes mellitus without complications; I11.0 Hypertensive heart disease with heart failure; I50.9 Heart failure, unspecified; E78.5 Hyperlipidemia, unspecified; F33.9 Major depressive disorder, recurrent, unspecified; Z88.1 Allergy status to other antibiotic agents; Z88.2 Allergy status to sulfonamides; Z79.899 Other long term (current) drug therapy; Z79.84 Long term (current) use of oral hypoglycemic drugs; Z79.01 Long term (current) use of anticoagulants

== ENCOUNTER 2018-12-11 12:20 | Emergency (ER) | payer MEDICARE ==
[~2018-12-11] VITALS: Ht 182.9 cm; Wt 106.8 kg
[2018-12-11 12:20] VITALS: BP 149/79
[~2018-12-11 12:20] MED LIST changes: +ELIQ5TAB PO; +FLUO40CA PO; +POTA10TA14 PO
[2018-12-11] MEDS ORDERED: XANA0.5T PO (12:29)
== END 2018-12-11 14:45 | disposition home or self-care (01) ==
LOC: M ED 12:20
DX: F41.1 Generalized anxiety disorder (principal); E11.9 Type 2 diabetes mellitus without complications; I10 Essential (primary) hypertension; F32.9 Major depressive disorder, single episode, unspecified; Z79.02 Long term (current) use of antithrombotics/antiplatelets; Z79.899 Other long term (current) drug therapy; Z88.2 Allergy status to sulfonamides

== ENCOUNTER 2018-12-25 11:31 | Emergency (ER) | payer MEDICARE ==
[~2018-12-25] VITALS: Ht 182.9 cm; Wt 109.1 kg
[~2018-12-25 11:31] MED LIST changes: +XANA0.5T PO
[2018-12-25] MEDS ORDERED: hydrOXYzine 25 MG TAB PO ONE (14:30)
[2018-12-25 14:41] VITALS: BP 135/72
== END 2018-12-25 14:48 | disposition home or self-care (01) ==
LOC: M ED 11:31
DX: F41.9 Anxiety disorder, unspecified (principal); I48.91 Unspecified atrial fibrillation; I50.9 Heart failure, unspecified; E11.9 Type 2 diabetes mellitus without complications; I10 Essential (primary) hypertension; E78.5 Hyperlipidemia, unspecified; Z79.01 Long term (current) use of anticoagulants; Z79.84 Long term (current) use of oral hypoglycemic drugs; Z79.899 Other long term (current) drug therapy; Z88.2 Allergy status to sulfonamides

== ENCOUNTER → 2019-02-12 | Outpatient (CLI) | payer MEDICARE ==
[2019-02-12 10:50] LABS: HEMATOCRIT 42.2 % (42.0-52.0); HEMOGLOBIN 14.5 g/dl (13.5-17.5); MEAN CORPUSCULAR HEMOGLOBIN 32.1 pg (27.0-33.0); MEAN CORPUSCULAR HGB CONC 34.4 g/dl (32.0-36.5); MEAN CORPUSCULAR VOLUME 93.4 fl (80.0-96.0); PLATELET COUNT, AUTOMATED 193 10^3/uL (150-450); RED BLOOD COUNT 4.52 10^6/uL (4.30-6.10); WHITE BLOOD COUNT 5.9 10^3/uL (4.0-10.0)
[2019-02-12 11:32] LABS: ALBUMIN 3.6 GM/DL (3.2-5.2); BILIRUBIN,TOTAL 0.5 MG/DL (0.2-1.0); CHOLESTEROL RISK RATIO 3.363 (<5); CREATININE FOR GFR 1.32 MG/DL (0.70-1.30); GLOMERULAR FILTRATION RATE 57.4 (>49); POTASSIUM SERUM 4.4 MEQ/L (3.5-5.1); PROSTATIC SPECIFIC AG MONITOR 0.11 NG/ML (< 4.00); THYROID STIMULATING HORMONE 1.25 uIU/ML (0.358-3.740); THYROXINE (T4) 7.9 UG/DL (4.5-12.0); TOTAL 25(OH) VITAMIN D 60.5 NG/ML (30.0-100.0); TOTAL PROTEIN 7.1 GM/DL (6.4-8.2)
[2019-02-12 11:47] LABS: HEMOGLOBIN A1c 7.7 %
== END ==
LOC: M LAB 09:56
PROVIDERS: ATTEND Family Medicine
DX: D64.9 Anemia, unspecified (principal); R53.83 Other fatigue; I10 Essential (primary) hypertension; E11.9 Type 2 diabetes mellitus without complications

== ENCOUNTER → 2019-02-27 | Outpatient (CLI) | payer MEDICARE ==
--- NOTE | 2019-02-27 13:55 | REP ---
PA and lateral chest four views: Comparisons are the PA and lateral chest of 06/11/2015 and serial chest CTs dating to 10/21/2014. There is a stable faintly visible nodule in the right mid lung corresponding to a stable nodule on the multiple CT scans. The lung celaya otherwise clear. Cardiac size is upper normal. The conner, mediastinum, skeletal structures are unchanged. Impression: Essentially negative PA and lateral chest. There is a stable nodular density in the right mid lung. Electronically Signed by Ramiro Johnson MD 02/27/2019 01:46 P
== END ==
LOC: M RAD 12:45
PROVIDERS: ATTEND Internal Medicine Pulmonary Disease
DX: R91.1 Solitary pulmonary nodule (principal)

== ENCOUNTER → 2019-06-16 | Outpatient (REF) ==
[2019-06-16 13:03] LABS: RUBELLA IgG QUALITATIVE IMMUNE (IMMUNE)
== END ==
LOC: M LAB 08:57
PROVIDERS: ATTEND Nurse Practitioner Adult Health
DX: Z00.00 Encounter for general adult medical examination without abnormal findings (principal)

== ENCOUNTER → 2019-10-13 | Outpatient (CLI) | payer MEDICARE ==
--- NOTE | 2019-10-13 12:43 | REP ---
LUMBOSACRAL SPINE SERIES: Five views lumbosacral spine are performed. There is mild compression deformity of L1, which is old and unchanged compared to the CT of the chest 05/16/2017. There is moderate diffuse spurring with bridging osteophytes on the right at L2-3. There is mild disc space narrowing and subchondral sclerosis at L1-2, L2-3 and L5-S1. There is a more moderate degree of disc space narrowing at L2-3 and L3-4. Vacuum phenomenon is noted at L2-3 through L5-S1. There is mild retrolisthesis of L2 on L3 and mild anterior listhesis of L5 on S1 which appears to be due to posterior facet arthropathy. There is moderate diffuse spurring at the posterior facet joints with sclerosis and narrowing. There is mild to moderate curvature toward the left with a rotatory component. Posterior elements appear intact. Scattered vascular calcifications are present. There are three round calcific densities in the right upper quadrant likely representing gallstones, largest is 2.3 cm. IMPRESSION: Moderate degenerative changes as above. Old mild compression deformity of L1. Electronically Signed by Ramiro Al MD 10/13/2019 01:37 P
--- NOTE | 2019-10-13 13:40 | REP ---
BILATERAL HIPS: AP and frogleg views of bilateral hips are performed. There is no acute fracture or dislocation bilaterally. Total right hip prosthesis is in place with no abnormal osseous lucency at the interface with adjacent bone. Vascular calcifications are seen in the soft tissues. On the left there is mild joint space narrowing. There is moderate spurring and subchondral sclerosis of the acetabulum. IMPRESSION: Unremarkable appearance of total right hip prosthesis. Mild to moderate degenerative changes of the left hip. Electronically Signed by Ramiro Al MD 10/13/2019 05:53 P
== END ==
LOC: M RAD 11:39
PROVIDERS: ATTEND Family Medicine
DX: M19.90 Unspecified osteoarthritis, unspecified site (principal); M54.5 Low back pain

== ENCOUNTER → 2019-10-24 | Outpatient (CLI) | payer MEDICARE ==
[2019-10-24 08:22] LABS: HEMATOCRIT 44.3 % (42.0-52.0); HEMOGLOBIN 14.6 g/dl (13.5-17.5); MEAN CORPUSCULAR HEMOGLOBIN 31.3 pg (27.0-33.0); MEAN CORPUSCULAR VOLUME 95.1 fl (80.0-96.0); PLATELET COUNT, AUTOMATED 196 10^3/uL (150-450); RED BLOOD COUNT 4.66 10^6/uL (4.30-6.10)
[2019-10-24 08:51] LABS: ALBUMIN 3.6 GM/DL (3.2-5.2); BILIRUBIN,TOTAL 0.6 MG/DL (0.2-1.0); CALCIUM LEVEL 9.5 MG/DL (8.8-10.2); CHOLESTEROL RISK RATIO 3.717 (<5); CREATININE FOR GFR 1.35 MG/DL (0.70-1.30); GLOMERULAR FILTRATION RATE 55.8 (>49); POTASSIUM SERUM 4.5 MEQ/L (3.5-5.1); PROSTATIC SPECIFIC AG MONITOR 0.28 NG/ML (< 4.00); THYROID STIMULATING HORMONE 1.17 uIU/ML (0.358-3.740); TOTAL PROTEIN 7.4 GM/DL (6.4-8.2)
[2019-10-24 09:06] LABS: TOTAL 25(OH) VITAMIN D 48.1 NG/ML (30.0-100.0)
[2019-10-24 10:56] LABS: HEMOGLOBIN A1c 7.3 %
== END ==
LOC: M LAB 07:11
PROVIDERS: ATTEND Family Medicine
DX: I10 Essential (primary) hypertension (principal); R53.83 Other fatigue; E03.9 Hypothyroidism, unspecified

== ENCOUNTER → 2020-02-18 | Outpatient (CLI) | payer MEDICARE ==
[2020-02-18 09:11] LABS: HEMATOCRIT 40.5 % (42.0-52.0); HEMOGLOBIN 13.7 g/dl (13.5-17.5); MEAN CORPUSCULAR HEMOGLOBIN 31.6 pg (27.0-33.0); MEAN CORPUSCULAR HGB CONC 33.8 g/dl (32.0-36.5); MEAN CORPUSCULAR VOLUME 93.3 fl (80.0-96.0); PLATELET COUNT, AUTOMATED 231 10^3/uL (150-450); RED BLOOD COUNT 4.34 10^6/uL (4.30-6.10); WHITE BLOOD COUNT 6.2 10^3/uL (4.0-10.0)
[2020-02-18 09:31] LABS: HEMOGLOBIN A1c 8.2 %
[2020-02-18 09:35] LABS: ALBUMIN 3.4 GM/DL (3.2-5.2); BILIRUBIN,TOTAL 0.4 MG/DL (0.2-1.0); CALCIUM LEVEL 9.2 MG/DL (8.8-10.2); CHOLESTEROL RISK RATIO 4.057 (<5); CREATININE FOR GFR 1.52 MG/DL (0.70-1.30); GLOMERULAR FILTRATION RATE 48.6 (>49); POTASSIUM SERUM 4.1 MEQ/L (3.5-5.1); PROSTATIC SPECIFIC AG MONITOR 0.16 NG/ML (< 4.00); THYROID STIMULATING HORMONE 1.4 uIU/ML (0.358-3.740); TOTAL PROTEIN 6.9 GM/DL (6.4-8.2)
== END ==
LOC: M LAB 07:24
PROVIDERS: ATTEND Family Medicine
DX: I12.9 Hypertensive chronic kidney disease with stage 1 through stage 4 chronic kidney disease, or unspecified chronic kidney disease (principal); E11.9 Type 2 diabetes mellitus without complications; N18.9 Chronic kidney disease, unspecified

== ENCOUNTER 2020-10-08 12:43 | Emergency (ER) | payer MEDICARE ==
[~2020-10-08] VITALS: Ht 182.9 cm; Wt 113.6 kg
[~2020-10-08 12:43] MED LIST changes: -LISI40TA PO; +LISI40TA4 PO
[2020-10-08] MEDS ORDERED: GLIP10TA PO (12:52)
[2020-10-08] MEDS ORDERED: ASPIRIN 81 MG CHEW TABLET PO ONE (13:15)
[2020-10-08] MEDS ORDERED: ISOVUE-370 76% 100ML VIAL As Ordered ONE (13:16)
[2020-10-08 13:17] LABS: BASO # 0.1 10^3/uL (0.0-0.2); BASO % 0.7 % (0.0-1.0); EOS # 0.2 10^3/uL (0.0-0.5); EOS % 2.6 % (0.0-3.0); HEMATOCRIT 47.5 % (42.0-52.0); HEMOGLOBIN 15.4 g/dl (13.5-17.5); LYMPH # 1.5 10^3/uL (1.5-5.0); MEAN CORPUSCULAR HEMOGLOBIN 30.9 pg (27.0-33.0); MEAN CORPUSCULAR HGB CONC 32.4 g/dl (32.0-36.5); MEAN CORPUSCULAR VOLUME 95.4 fl (80.0-96.0); MONO # 0.5 10^3/uL (0.0-0.8); NEUTROPHILS % 69.1 % (36.0-66.0); PLATELET COUNT, AUTOMATED 252 10^3/uL (150-450); RED BLOOD COUNT 4.98 10^6/uL (4.30-6.10); WHITE BLOOD COUNT 7.3 10^3/uL (4.0-10.0)
--- NOTE | 2020-10-08 13:39 | REP ---
INDICATION: chest pain; r/o TAA/PE. COMPARISON: Comparison chest CT study May 16, 2017.. TECHNIQUE: Contrast dose: 75 ML of Isovue [address] technique: Helical scanning is acquired and overlapping 1.5 mm and contiguous 3 mm axial images are reformatted. In addition, maximum intensity projection and multiplanar re-formation images are generated in sagittal and coronal imaging projections. FINDINGS: There is good opacification in the pulmonary arterial tree. There is no evidence of vessel cut off or filling defect to suggest pulmonary embolus. Homogeneous opacity is seen in the thoracic aorta. There is no evidence of aneurysm or dissection. Lung window settings demonstrate a somewhat irregularly marginated 1.8 cm noncalcified pulmonary nodule in the right upper lobe. In addition, there is a smoothly marginated right lower lobe nodule measuring 1.0 cm. Both of these are unchanged from the May 16, 2017 prior study. No new pulmonary nodule is seen. No infiltrate or atelectasis is observed. There is a small pericardial effusion. No pleural effusion is seen. Pericardial effusion is unchanged from the 2017 study as well. There is mild cardiomegaly. Coronary artery calcification and aortic arch calcification are noted. There is some mitral annular calcification as well. The ascending aorta is not dilated. It measures 3.4 cm in AP dimension. In the upper abdomen, normal adrenal glands are seen. Opaque gallstones are visualized in the gallbladder. There is a small cyst in the left kidney. IMPRESSION: No CT evidence of thoracic aortic aneurysm or pulmonary embolism. Stable pulmonary nodules on the right. Cardiomegaly. Some vascular calcification. Stable small pericardial effusion.. <Electronically signed by Maldonado Tovar > 10/08/20 [id number]
[2020-10-08 13:47] LABS: ALBUMIN 4.1 GM/DL (3.2-5.2); BILIRUBIN,DIRECT 0.1 MG/DL (0.0-0.2); BILIRUBIN,TOTAL 0.4 MG/DL (0.2-1.0); TOTAL PROTEIN 7.8 GM/DL (6.4-8.2)
--- NOTE | 2020-10-08 13:53 | REP ---
INDICATION: CHEST PAIN. COMPARISON: Comparison chest x-ray February 27, 2019. TECHNIQUE: Portable upright AP chest radiograph. FINDINGS: EKG monitoring electrodes overlie the chest. The lungs are symmetrically aerated and free of infiltrate. Moderate cardiomegaly is observed. Pleural angles are sharp. Heart size is unchanged. Pulmonary vasculature is not increased. There is a somewhat spiculated nodular density 1.6 cm in diameter in the right mid lung field on today's chest x-ray suggesting a pulmonary nodule. This corresponds to the pulmonary nodule seen on chest CT studies.. No acute bony abnormality. Some vascular calcification is seen. IMPRESSION: Stable right perihilar pulmonary nodule. Moderate cardiac enlargement. Otherwise no acute disease.. <Electronically signed by Maldonado Tovar > 10/08/20 [id number]
--- OUTSIDE RECORDS SUMMARY | 2020-10-08 14:23 | CCD | Continuity of Care Document ---
Author Author Andres [facility] Organization Unknown Address [address] [place] [id number] Phone [phone] Care Team Providers Care Second Helper Name Role Phone Gissel Odom MD [facility] [phone] Problems Active Problems Provider Date Essential hypertension Onset: 03/31/2020 Pure hypercholesterolemia Onset: 020 Social History Type Date Description Comments Sex Unknown Cigarette Use Former Cigarette Smoker 1 Pack D aily quit: 1979 Pipe Former Pipe Smoker, Smoked 4 Pip es Daily quit 2011 ETOH Use Rarely consumes alcohol quit 199 1 Allergies, Adverse Reactions, Alerts Active Allergies Reaction Severity Comments Date sulfa drugs 03/31/2020 Medications Active Medications SIG Qnty Indications Ordering Provide r Date Glipizide 5mg Tablets Take 1 Tablet By Mouth With Breakfast And Dinner as Directed 180tabs E11.65 Sherry Griffith MD 04/01/2020 Onetouch Delica Lancets Fine 30G 3 0G Misc use 1 time daily to check blood sugars mdd 1 200units E11.65 Ibis Pike NP Onetouch Verio Strips use as directed to check blood sugars 200units E11.65 Adelaide Pike NP Onetouch Verio w/Device Kit use as directed 1 times a day, e11.65 200units E11.65 Joanne Palacios Latanoprost 0.005% Solution 1 drop both eyes every night Unknown Metformin HCL 1000mg Tablets 1 po bid Unknown Fluoxetine HCL 20mg Capsules 3 po bid Unknown Furosemide 40mg Tablets 1 po tid Unknown Verapamil HCL ER 240mg Tablets ER 1 po bid Unknown Tamsulosin HCL 0.4mg Capsules 1 po bid Unknown Potassium Chloride Emily ER 10Meq Tablets ER 1 po tid Unknown Lovastatin 40mg Tablets 1 po qd Unknown Vitamin D3 125mcg (5000 Ut) Capsul es 1 po qd Unknown Tramadol HCL 50mg Tablets 1 po bid prn Unknown Finasteride 5mg Tablets 1 po qd Unknown Meclizine HCL 25mg Tablets 1 po bid Unknown Chamomile 700MG 2 po qd Unknown 0 Digoxin 250mcg Tablets 1 by mouth every day Unknown Lisinopril 40mg Tablets 1 po qd Unknown Eliquis 5mg Tablets 1 po bid Unknown Immunizations Description No Information Available Vital Signs Date Vital Result Comment 10/05/2020 12:58pm BP Systolic 144 mmHg BP Diastolic 84 mmHg Heart Rate 88 /min Body Temperature 97.5 F Height 70.7 inches 5'10.70" Weight 247.50 lb BMI (Body Mass Index) 34.8 kg/m2 O2 % BldC Oximetry 96 % 07/05/2020 2:06pm BP Systolic 126 mmHg BP Diastolic 76 mmHg Heart Rate 92 /min Body Temperature 96.3 F Height 70.7 inches 5'10.70" Weight 261.44 lb BMI (Body Mass Index) 36.8 kg/m2 O2 % BldC Oximetry 98 % Results Test Acquired Date Facility Test Result H/L Range Note Laboratory test finding 10/05/2020 In House Glucose 135 Hemoglobin A1c 6.2% Laboratory test finding 07/05/2020 In House Hemoglobin A1c 6.1 Glucose 105 Procedures Date Code Description Status 03/13/2020 643217764 Diabetic Foot Exam Completed Medical Devices Description No Information Available Encounters Type Date Location Provider Dx Diagnosis Office Visit 10/05/2020 1:00p DR. Tonya Pike NP E1 1.65 Type 2 diabetes mellitus with hyperglycemia Office Visit 07/05/2020 2:30p DR. Tonya Griffith MD E 11.65 Type 2 diabetes mellitus with hyperglycemia Assessments Date Code Description Provider 10/05/2020 E11.65 Type 2 diabetes mellitus with hy perglycemia Adelaide Pike NP 07/05/2020 E11.65 Type 2 diabetes mellitus with hy perglycemia Tonya Griffith MD Plan of Treatment 10/05/2020 - Adelaide Pike NP* E11.65 Type 2 diabetes mellitus with hyperglycemia* New Labs:* Urine Micro/Creat Ratio Random, Scheduled: 10/05/20 * Comments:* 10/05/20- in office A1c= 6.2% (6.1%, 8.2%) Random BS= 135No meter for download- meter broke. Currently medication: Metformin 1000 mg BID, Glipizide 5mg BID ( added 03/2020)Financial constraints limit use of GLP-1 and SGLT-2.Not a candidate for pioglitazone based on high dose lasix use.Watch diet - has lost 13 pounds since last visit. doing wellContinue same. RTO 3 months. * Follow up:* Follow up in 3 months. CBF Functional Status Description No Information Available Mental Status Description No Information Available Referrals Description No Information Available
--- OUTSIDE RECORDS SUMMARY | 2020-10-08 14:24 | CCD | Continuity of Care Document ---
Author Author Andres [facility] Organization Unknown Address [address] [place] [id number] Phone [phone] Care Team Providers Care Speaker Wirer Name Role Phone Gissel Odom MD [facility] [phone] Problems Active Problems Provider Date Essential hypertension [...] 105 Procedures Date Code Description Status 03/13/2020 [id number] Diabetic Foot Exam Completed Medical Devices Description No Information Available Encounters Type Date Location Provider Dx Diagnosis Office Visit 07/05/2020 2:30p DR. Tonya Griffith [...] has lost 13 pounds since last visit. Functional Status Description No Information Available Mental Status Description No Information Available Referrals Description No Information Available
--- OUTSIDE RECORDS SUMMARY | 2020-10-08 14:27 | CCD ---
Author Author [facility] Organization [facility] Address Unknown Phone Unavailable Care Team Providers Care Sheet Ironworker Name Role Phone Fons, M Lucero PRIMARY CLINICIAN Unavailable Unavailable Fons, M Lucero PRIMARY CLINICIAN Unavailable Unavailable Fons, M Lucero PRIMARY CLINICIAN Unavailable Unavailable Fons, M Lucero PRIMARY CLINICIAN Unavailable Unavailable Fons, M Lucero PRIMARY CLINICIAN Unavailable Unavailable Fons, M Lucero PRIMARY CLINICIAN Unavailable Unavailable Fons, M Lucero PRIMARY CLINICIAN Unavailable Unavailable Fons, M Lucero PRIMARY CLINICIAN Unavailable Unavailable Fons, M Lucero PRIMARY CLINICIAN Unavailable Unavailable Fons, M Lucero PRIMARY CLINICIAN Unavailable Unavailable Fons, M Lucero PRIMARY CLINICIAN Unavailable Unavailable Fons, M Lucero PRIMARY CLINICIAN Unavailable Unavailable Fons, M Lucero PRIMARY CLINICIAN Unavailable Unavailable Fons, M Lucero PRIMARY CLINICIAN Unavailable Unavailable Fons, M Lucero PRIMARY CLINICIAN Unavailable Unavailable Fons, M Lucero PRIMARY CLINICIAN Unavailable Unavailable Fons, M Lucero PRIMARY CLINICIAN Unavailable Unavailable Fons, M Lucero PRIMARY CLINICIAN Unavailable Unavailable Fons, M Lucero PRIMARY CLINICIAN Unavailable Unavailable Fons, M Lucero PRIMARY CLINICIAN Unavailable Unavailable Fons, M Lucero PRIMARY CLINICIAN Unavailable Unavailable Fons, M Lucero PRIMARY CLINICIAN Unavailable Unavailable Fons, M Lucero PRIMARY CLINICIAN Unavailable Unavailable Fons, M Lucero PRIMARY CLINICIAN Unavailable Unavailable Fons, M Lucero PRIMARY CLINICIAN Unavailable Unavailable Fons, M Lucero PRIMARY CLINICIAN Unavailable Unavailable Fons, M Lucero PRIMARY CLINICIAN Unavailable Unavailable Fons, M Lucero PRIMARY CLINICIAN Unavailable Unavailable Fons, M Lucero PRIMARY CLINICIAN Unavailable Unavailable Fons, M Lucero PRIMARY CLINICIAN Unavailable Unavailable Fons, M Lucero PRIMARY CLINICIAN Unavailable Unavailable Fons, M Lucero PRIMARY CLINICIAN Unavailable Unavailable Fons, M Lucero PRIMARY CLINICIAN Unavailable Unavailable Fons, M Lucero PRIMARY CLINICIAN Unavailable Unavailable Fons, M Lucero PRIMARY CLINICIAN Unavailable Unavailable Fons, M Lucero PRIMARY CLINICIAN Unavailable Unavailable Fons, M Lucero PRIMARY CLINICIAN Unavailable Unavailable Fons, M Lucero PRIMARY CLINICIAN Unavailable Unavailable Fons, M Lucero PRIMARY CLINICIAN Unavailable Unavailable Fons, M Lucero PRIMARY CLINICIAN Unavailable Unavailable Fons, M Lucero PRIMARY CLINICIAN Unavailable Unavailable Fons, M Lucero PRIMARY CLINICIAN Unavailable Unavailable Fons, M Lucero PRIMARY CLINICIAN Unavailable Unavailable Fons, M Lucero PRIMARY CLINICIAN Unavailable Unavailable Fons, M Lucero PRIMARY CLINICIAN Unavailable Unavailable Fons, M Lucero PRIMARY CLINICIAN Unavailable Unavailable Fons, M Lucero PRIMARY CLINICIAN Unavailable Unavailable Fons, M Lucero PRIMARY CLINICIAN Unavailable Unavailable Fons, M Lucero PRIMARY CLINICIAN Unavailable Unavailable Fons, M Lucero PRIMARY CLINICIAN Unavailable Unavailable Fons, M Lucero PRIMARY CLINICIAN Unavailable Unavailable Fons, M Lucero PRIMARY CLINICIAN Unavailable Unavailable Fons, M Lucero PRIMARY CLINICIAN Unavailable Unavailable Fons, M Lucero PRIMARY CLINICIAN Unavailable Unavailable Fons, M Lucero PRIMARY CLINICIAN Unavailable Unavailable FishAbe MD Unavailable Unavailable Nacho, Abe Castaneda MD Unavailable Unavailable Abe Griffith MD Unavailable Unavailable Abe Griffith MD Unavailable Unavailable Abe Griffith MD Unavailable Unavailable Abe Griffith MD Unavailable Unavailable Abe Griffith MD Unavailable Unavailable FishAbe MD Unavailable Unavailable Fish, Abe Castaneda MD Unavailable Unavailable Abe Griffith MD Unavailable Unavailable Abe Griffith MD Unavailable Unavailable Abe Griffith MD Unavailable Unavailable Abe Griffith MD Unavailable Unavailable Abe Griffith MD Unavailable Unavailable Abe Griffith MD Unavailable Unavailable Abe Griffith MD Unavailable Unavailable Abe Griffith MD Unavailable Unavailable Abe Griffith MD Unavailable Unavailable Abe Griffith MD Unavailable Unavailable Abe Griffith MD Unavailable Unavailable Abe Griffith MD Unavailable Unavailable Abe Griffith MD Unavailable Unavailable Abe Griffith MD Unavailable Unavailable Abe Griffith MD Unavailable Unavailable Abe Griffith MD Unavailable Unavailable Abe Griffith MD Unavailable Unavailable Abe Griffith MD Unavailable Unavailable Abe Griffith MD Unavailable Unavailable Abe Griffith MD Unavailable Unavailable Abe Griffith MD Unavailable Unavailable Abe Griffith MD Unavailable Unavailable Abe Griffith MD Unavailable Unavailable Abe Griffith MD Unavailable Unavailable Abe Griffith MD Unavailable Unavailable Abe Griffith MD Unavailable Unavailable Abe Griffith MD Unavailable Unavailable Abe Griffith MD Unavailable Unavailable Abe Griffith MD Unavailable Unavailable Abe Griffith MD Unavailable Unavailable Abe Griffith MD Unavailable Unavailable Abe Griffith MD Unavailable Unavailable Fish, B Tonya SCHULTE Unavailable Unavailable Fish, B Tonya SCHULTE Unavailable Unavailable Fish, B Tonya SCHULTE Unavailable Unavailable Fish, B Tonya SCHULTE Unavailable Unavailable Fish, B Tonya SCHULTE Unavailable Unavailable Fish, B Tonya SCHULTE Unavailable Unavailable Fish, B Tonya SCHULTE Unavailable Unavailable Fish, B Tonya SCHULTE Unavailable Unavailable Fish, B Tonya SCHULTE Unavailable Unavailable Fish, B Tonya SCHULTE Unavailable Unavailable Fish, B Tonya SCHULTE Unavailable Unavailable Fish, B Tonya SCHULTE Unavailable Unavailable Fish, B Tonya SCHULTE Unavailable Unavailable Fish, B Tonya SCHULTE Unavailable Unavailable Fish, B Tonya SCHULTE Unavailable Unavailable Fish, B Tonya SCHULTE Unavailable Unavailable Fish, B Tonya SCHULTE Unavailable Unavailable Fish, B Tonya SCHULTE Unavailable Unavailable Fish, B Tonya SCHULTE Unavailable Unavailable Fish, B Tonya SCHULTE Unavailable Unavailable Fish, B Tonya SCHULTE Unavailable Unavailable Fish, B Tonya SCHULTE Unavailable Unavailable Fish, B Tonya SCHULTE Unavailable Unavailable COOK, B ZACH ZYGLO INSPECTOR Unavailable Unavailable COOK, B ZACH ZYGLO INSPECTOR Unavailable Unavailable COOK, B ZACH ZYGLO INSPECTOR Unavailable Unavailable COOK, B ZACH ZYGLO INSPECTOR Unavailable Unavailable COOK, B ZACH ZYGLO INSPECTOR Unavailable Unavailable COOK, B ZACH ZYGLO INSPECTOR Unavailable Unavailable COOK, B ZACH ZYGLO INSPECTOR Unavailable Unavailable COOK, B ZACH ZYGLO INSPECTOR Unavailable Unavailable COOK, B ZACH ZYGLO INSPECTOR Unavailable Unavailable COOK, B ZACH ZYGLO INSPECTOR Unavailable Unavailable COOK, B ZACH ZYGLO INSPECTOR Unavailable Unavailable COOK, B ZACH ZYGLO INSPECTOR Unavailable Unavailable COOK, B ZACH ZYGLO INSPECTOR Unavailable Unavailable COOK, B ZACH ZYGLO INSPECTOR Unavailable Unavailable COOK, B ZACH ZYGLO INSPECTOR Unavailable Unavailable COOK, B ZACH ZYGLO INSPECTOR Unavailable Unavailable COOK, B ZACH ZYGLO INSPECTOR Unavailable Unavailable COOK, B ZACH ZYGLO INSPECTOR Unavailable Unavailable COOK, B ZACH ZYGLO INSPECTOR Unavailable Unavailable COOK, B ZACH ZYGLO INSPECTOR Unavailable Unavailable COOK, B ZACH ZYGLO INSPECTOR Unavailable Unavailable COOK, B ZACH ZYGLO INSPECTOR Unavailable Unavailable COOK, B ZACH ZYGLO INSPECTOR Unavailable Unavailable COOK, B ZACH ZYGLO INSPECTOR Unavailable Unavailable COOK, B ZACH ZYGLO INSPECTOR Unavailable Unavailable COOK, B ZACH ZYGLO INSPECTOR Unavailable Unavailable COOK, B ZACH ZYGLO INSPECTOR Unavailable Unavailable COOK, B ZACH ZYGLO INSPECTOR Unavailable Unavailable COOK, B ZACH ZYGLO INSPECTOR Unavailable Unavailable COOK, B ZACH ZYGLO INSPECTOR Unavailable Unavailable COOK, B ZACH ZYGLO INSPECTOR Unavailable Unavailable COOK, B ZACH ZYGLO INSPECTOR Unavailable Unavailable COOK, B ZACH ZYGLO INSPECTOR Unavailable Unavailable COOK, B ZACH ZYGLO INSPECTOR Unavailable Unavailable COOK, B ZACH ZYGLO INSPECTOR Unavailable Unavailable COOK, B ZACH ZYGLO INSPECTOR Unavailable Unavailable COOK, B ZACH ZYGLO INSPECTOR Unavailable Unavailable COOK, B ZACH ZYGLO INSPECTOR Unavailable Unavailable COOK, B ZACH ZYGLO INSPECTOR Unavailable Unavailable COOK, B ZACH ZYGLO INSPECTOR Unavailable Unavailable COOK, B ZACH ZYGLO INSPECTOR Unavailable Unavailable COOK, B ZACH ZYGLO INSPECTOR Unavailable Unavailable COOK, B ZACH ZYGLO INSPECTOR Unavailable Unavailable COOK, B ZACH ZYGLO INSPECTOR Unavailable Unavailable COOK, B ZACH ZYGLO INSPECTOR Unavailable Unavailable COOK, B ZACH ZYGLO INSPECTOR Unavailable Unavailable COOK, B ZACH ZYGLO INSPECTOR Unavailable Unavailable COOK, B ZACH ZYGLO INSPECTOR Unavailable Unavailable COOK, B ZACH ZYGLO INSPECTOR Unavailable Unavailable COOK, B ZACH ZYGLO INSPECTOR Unavailable Unavailable COOK, B ZACH ZYGLO INSPECTOR Unavailable Unavailable COOK, B ZACH ZYGLO INSPECTOR Unavailable Unavailable COOK, B ZACH ZYGLO INSPECTOR Unavailable Unavailable COOK, B ZACH ZYGLO INSPECTOR Unavailable Unavailable COOK, B ZACH ZYGLO INSPECTOR Unavailable Unavailable COOK, B ZACH ZYGLO INSPECTOR Unavailable Unavailable COOK, B ZACH ZYGLO INSPECTOR Unavailable Unavailable COOK, B ZACH ZYGLO INSPECTOR Unavailable Unavailable COOK, B ZACH ZYGLO INSPECTOR Unavailable Unavailable COOK, B ZACH ZYGLO INSPECTOR Unavailable Unavailable COOK, B ZACH ZYGLO INSPECTOR Unavailable Unavailable COOK, B ZACH ZYGLO INSPECTOR Unavailable Unavailable COOK, B ZACH ZYGLO INSPECTOR Unavailable Unavailable COOK, B ZACH ZYGLO INSPECTOR Unavailable Unavailable Re-disclosure Warning The records that you are about to access may contain information from federally-assisted alcohol or drug abuse programs. If such information is present, then the following federally mandated warning applies: This information has been disclosed to you from records protected by federal confidentiality rules (42 CFR part 2). The federal rules prohibit you from making any further disclosure of this information unless further disclosure is expressly permitted by the written consent of the person to whom it pertains or as otherwise permitted by 42 CFR part 2. A general authorization for the release of medical or other information is NOT sufficient for this purpose. The Federal rules restrict any use of the information to criminally investigate or prosecute any alcohol or drug abuse patient.The records that you are about to access may contain highly sensitive health information, the redisclosure of which is protected by Article 27-F of the [facility] Public Health law. If you continue you may have access to information: Regarding HIV / AIDS; Provided by facilities licensed or operated by the [facility] Office of Mental Health; or Provided by the [facility] Office for People With Developmental Disabilities. If such information is present, then the following [facility] mandated warning applies: This information has been disclosed to you from confidential records which are protected by state law. State law prohibits you from making any further disclosure of this information without the specific written consent of the person to whom it pertains, or as otherwise permitted by law. Any unauthorized further disclosure in violation of state law may result in a fine or correction sentence or both. A general authorization for the release of medical or other information is NOT sufficient authorization for further disc losure. Family History Family Member Name Family Member Gender Family Member Status Date o f Status Description Data Source(s) Unknown Unknown Problem [facility] ([facility]) Unknown Female Problem [facility] ([facility] Encounters Encounter Providers Location Date Indications Data Source(s ) OFFICE OUTPATIENT VISIT 15 MINUTES Attender: ZACH WOOD NP Phys ical Therapy 10/05/2020 12:00:00 PM EST [facility] ([facility]) Outpatient Attender: Lucero Manuel FNPReferrer: Lucero HICKS-SJPDominiquePAPA 07/27/2020 12:00:00 AM EST - 07/27/2020 11:53:41 AM EST [facility] Outpatient Referrer: Lucero MEEK-SJPDominiquePAPA 07/27/2020 12:00:00 AM EST [facility] Outpatient Attender: Tonya Griffith MD Physical Therapy 07/05 01:30:00 PM EST [facility] ([facility]) Outpatient Attender: Tonya Griffith MD Physical Therapy 04/01 01:00:00 PM EDT [facility] ([facility]) Outpatient Attender: Lucero MEEK-SJPDominiquePAPA 0 11:11:09 AM EDT - 01/21/2020 11:34:26 AM EDT [facility] Outpatient Attender: Lucero MEEK-SJPDominiquePAPA 01/21/2020 12:00:00 AM EDT [facility] Outpatient 10/16/2019 01:59:00 PM EST [facility] Radiology Imaging Medications Medication Brand Name Start Date Product Form Dose Route Admi nistrative Instructions Pharmacy Instructions Status Indications Reaction Description Data Source(s) Glipizide 5 MG Oral Tablet glipiZIDE (GLUCOTROL) 5 MG tablet glipiZIDE (GLUCOTROL) 5 MG tablet 06/15/2020 12:00:00 AM EST 1 {tbl} Oral active Take 1 tablet by mouth 2 (two) times a day [facility] apixaban 5 MG Oral Tablet [Eliquis] ELIQUIS 5 MG TABS tablet ELIQUIS 5 MG TABS tablet 06/09/2020 12:00:00 AM EDT active TAKE 1 TABLET BY MOUTH TWICE DAILY [facility] Fluoxetine 20 MG Oral Capsule FLUoxetine (PROZAC) 20 M G capsule FLUoxetine (PROZAC) 20 MG capsule 05/26/2020 12:00:00 AM EDT 2 {capsule} Oral active Take 2 capsules by mouth 2 (two) times a day [facility] latanoprost 0.05 MG/ML Ophthalmic Soluti on latanoprost (XALATAN) 0.005 % ophthalmic solution latanoprost (XALATAN) 0.005 % ophthalmic solution 05/13 12:00:00 AM EDT active INSTILL 1 DROP INTO OU Q NIGHT UTD [facility] Accu-Chek Fastclix Lancets 04/02/2020 12:00:00 AM EDT active [facility] ([facility]) Accu-Chek Kim Plus 04/02/2020 12:00:00 AM EDT active [facility] ([facility]) Accu-Chek Kim Plus 04/02/2020 12:00:00 AM EDT active [facility] ([facility]) Accu-Chek Lancets ( Plus) 04/02/2020 12:00:00 AM EDT completed [facility] ([facility]) Freestyle Lite Test 04/01/2020 12:00:00 AM EDT completed [facility] ([facility] Freestyle Lite Blood Glucose Monitoring System 04/01/2020 12:00:00 AM EDT completed [facility] ([facility]) Freestyle Lancets 04/01/2020 12:00:00 AM EDT completed [facility] ([facility] Glipizide 5 MG Oral Tablet Glipizide 04/01/2020 12:00:00 AM EDT active [facility] ([facility]) tramadol hydrochloride 50 MG Oral Tablet traMADol (ULT ROSARIO) 50 MG tablet traMADol (ULTRAM) 50 MG tablet 07/14/2019 12:00:00 AM EST aborted TK 1 T PO BID MDD 2 TABLETS. [facility] Fluoxetine 60 MG Oral Tablet FLUoxetine HCl 60 MG TABS FLUoxetine HCl 60 MG TABS 07/23/2015 12:00:00 AM EST 1 {tbl} Oral aborted Take 1 tablet by mouth 2 (two) times a day [facility] Insurance Providers Payer name Policy type / Coverage type Policy ID Covered alliance party ID Covered alliance party's relationship to bridges Policy Bridges Plan Information MEDICARE COMPLETE [id number] SP [id number] [facility] MEDICARE [id number] [facility] MEDICARE [id number] Maile [id number] MEDICARE COMPLETE-[facility] O [id number] S [id number] [facility] HMO [id number] SP [id number] MEDICARE COMPLETE [id number] SP [id number] MEDICARE COMPLETE [id number] SP [id number] MEDICARE COMPLETE [id number] SP [id number] [facility]/Medicare Commercial Self MEDICARE COMPLETE [id number] SP [id number] [facility] Medicare Commercial Self MEDICARE COMPLETE [id number] SP [id number] MEDICARE COMPLETE [id number] SP [id number] Problems, Conditions, and Diagnoses Code Display Name Description Problem Type Effective Dates Data Source(s) I50.31 Acute diastolic heart failure Acute diastolic heart fa ilure [id number] 07/27/2020 12:00:00 AM EST [facility] [id number] Pure hypercholesterolemia Pure hypercholesterolemia Pr oblem 03/31/2020 12:00:00 AM EDT [facility] ([facility]) [id number] Essential hypertension Essential hypertension Problem 03/31/2020 12:00:00 AM EDT [facility] ([facility]) 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, without long-term current use of insulin Type 2 diabetes mellitus with stage 3 ch ronic kidney disease, without long-term current use of insulin [id number] 01/21/2020 12:00:00 AM EDT [facility] N18.30 Kidney disease, chronic, stage III (GFR 30-59 ml/min) Kidney disease, chronic, stage III (GFR 30-59 ml/min) [id number] 01/21/2020 12:00:00 AM EDT [facility] I50.31 Acute diastolic (congestive) heart failu re Acute diastolic (congestive) heart failu Diagnosis 07/27/2020 09:48:28 AM [facility] E11.22 Type 2 diabetes mellitus with diabetic c hronic kidney disease Type 2 diabetes mellitus with diabetic c Diagnosis 07/27/2020 09:48:28 AM [facility] N18.30 Chronic kidney disease, stage 3 unspecif ied Chronic kidney disease, stage 3 unspecif Diagnosis 07/27/2020 09:48:28 AM [facility] I10 Essential (primary) hypertension Essential (primary) h ypertension Diagnosis 01/21/2020 11:11:09 AM EDT [facility] E11.9 Type 2 diabetes mellitus without complic ations Type 2 diabetes mellitus without complic Diagnosis 01/21/2020 11:11:09 AM EDT [facility] N18.3 Chronic kidney disease, stage 3 (moderat e) Chronic kidney disease, stage 3 (moderat Diagnosis 01/21/2020 11:11:09 AM EDT [facility] 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, unspecif ied Rheumatic mitral valve disease, unspecif Diagnosis 01/21/2020 11:11:09 AM EDT [facility] I77.810 Thoracic aortic ectasia Thoracic aortic ectasia Diagno sis 01/21/2020 11:11:09 AM EDT [facility] R07.9 Chest pain, unspecified Chest pain, unspecified Diagno sis 01/21/2020 11:11:09 AM EDT [facility] I48.91 Unspecified atrial fibrillation Unspecified atri al fibrillation Diagnosis 01/21/2020 11:11:09 AM EDT [facility] Surgeries/Procedures Procedure Description Date Indications Data Source(s) ECG ROUTINE ECG W/LEAST 12 LDS W/I&R POCT AMB EKG Routine 07/27/2020 12:50 PM EST Atrial fibrillation 07/27/2020 05:50:00 PM EST Atrial fibrillati on [facility] Atrial fibrillation HEMOGLOBIN GLYCOSYLATED A1C HEMOGLOBIN A1C Routine 07/05/2020 07/05/2020 12:00:00 AM EST [facility] Diabetic Foot Exam 03/13/2020 12:00:00 AM EDT [facility] ([facility] BLOOD COUNT COMPLETE AUTO&AUTO DIFRNTL WBC COUNT CBC AND DIFFER ENTIAL Routine 02/18/2020 02/18/2020 12:00:00 AM EDT [facility] THYROID STIMULATING HORMONE TSH TSH Routine 02/18/2020 02/18/2020 12:00:00 AM EDT [facility] HEPATIC FUNCTION PANEL HEPATIC FUNCTION PANEL Routine 02/18/2020 02/18/2020 12:00:00 AM EDT [facility] LIPID PANEL LIPID PANEL Routine 02/18/2020 02/18/2020 1 2:00:00 AM EDT [facility] BASIC METABOLIC PANEL CALCIUM TOTAL BASIC METABOLIC PANEL Routine 02/18/2020 02/18/2020 12:00:00 AM EDT [facility] Results ID Date Data Source [id number] 10/05/2020 01:10:00 PM EST [facility] ([facility]) Name Value Range Interpretation Code Description Data Shelia rce(s) Supporting Document(s) Glucose [Mass/volume] in Serum or Plasma 135 [facility] ([facility]) Hemoglobin A1c/Hemoglobin.total in Blood Laboratory test result [facility] ([facility]) ID Date Data Source [id number] 07/27/2020 09:26:21 PM EST [facility] Name Value Range Interpretation Code Description Data Shelia rce(s) Supporting Document(s) DIGOXIN 1.5 ng/mL (0.8-2.0) [facility] [place] [facility] ID Date Data Source [id number] 07/27/2020 01:01:50 PM EST [facility] Name Value Range Interpretation Code Description Data Shelia rce(s) Supporting Document(s) &PDF [facility] VNAPTo3pTqDHNlSx06/AIThkRKTqx1ZuVZyxNRo0IKyxSTNwD0QrfVnbKGGXZ3RFXVADJTqNQIAWGAZN yZW [file] crmDtYPBEAHgi4HXyXLqcPXjCOTmNoadYJg7Z3EXBvFZKkf/LiDjHZlBeuDuycCfgbrkW+vZDaQD/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 [file] ICAgICAgICAgICAgICAgICAgICAgICAgICAgICAgIC AgICAgICAgICAgICAgICAgICAgICAgICAgICAgICAgICAgICAgICAgICANCiAgICAgICAgICAgICAgIC AgICAgICAgICAgICAgICAgICAgICAgICAgICAgICAgICAgICAgICAgICAgICAgICAgICAgICAgICAgIC AgICAgICAgICAgICAgICAgICAgICAgICANCiAgICAg ICAgICAgICAgICAgICAgICAgICAgICAgICAgICAgICAgICAgICAgICAgICAgICAgICAgICAgICAgICAg ICAgICAgICAgICAgICAgICAgICAgICAgICAgICAgICAgICANCiAgICAgICAgICAgICAgICAgICAgICAg ICAgICAgICAgICAgICAgICAgICAgICAgICAgICAgIC AgICAgICAgICAgICAgICAgICAgICAgICAgICAgICAgICAgICAgICAgICAgICANCiAgICAgICAgICAgIC AgICAgICAgICAgICAgICAgICAgICAgICAgICAgICAgICAgICAgICAgICAgICAgICAgICAgICAgICAgIC AgICAgICAgICAgICAgICAgICAgICAgICAgICANCiAg ICAgICAgICAgICAgICAgICAgICAgICAgICAgICAgICAgICAgICAgICAgICAgICAgICAgICAgICAgICAg ICAgICAgICAgICAgICAgICAgICAgICAgICAgICAgICAgICAgICANCiAgICAgICAgICAgICAgICAgICAg ICAgICAgICAgICAgICAgICAgICAgICAgICAgICAgIC AgICAgICAgICAgICAgICAgICAgICAgICAgICAgICAgICAgICAgICAgICAgICAgICANCiAgICAgICAgIC AgICAgICAgICAgICAgICAgICAgICAgICAgICAgICAgICAgICAgICAgICAgICAgICAgICAgICAgICAgIC AgICAgICAgICAgICAgICAgICAgICAgICAgICAgICAN CiAgICAgICAgICAgICAgICAgICAgICAgICAgICAgICAgICAgICAgICAgICAgICAgICAgICAgICAgICAg ICAgICAgICAgICAgICAgICAgICAgICAgICAgICAgICAgICAgICAgICANCiAgICAgICAgICAgICAgICAg ICAgICAgICAgICAgICAgICAgICAgICAgICAgICAgIC AgICAgICAgICAgICAgICAgICAgICAgICAgICAgICAgICAgICAgICAgICAgICAgICAgICANCjw/eHBhY2 qvoAOjzgJ7Z5fdRm6ZQo7OTN8tx7IvTQAbXXqmjeGiXgaKMpIuVEVzWxtISnl2QVdlJD2ApDCiK5DbW7 JcRGhxJD7IWULrMJNglBUpOLFxCXQcBdB3ZSLhXPvo WY8GhOTcXRxdCPUqMSUmHdUpTDTsTE4TIYJgV343pyTrUs6VEu4HLiDgRP5igd4RAvFnJQBdTofIFkr4 UXmkDJ3KiPEtF4TorYLhq6cVEtAnE4ZNZZK3OLOlTo9TITJbVeOcHTSeSSodXV4hIODqERFUuZjyjqQ4 KO2DIG0qwaVbVU5LLeMvRs3sLh0FSvWlX8McH4EiDW BpJAZLTHtcHD1HZVXeVSD5AAKaJXEwTPLCTcWmN28hDR6LP3Whd86hRlL6VHVxFbIzOFexCF54vTnosf VyjAAwmFqlMF4ECv7+FIleksPdEncTOtmsYKFFCsHyXlZNLjXwBLEjKXZxAPOoYxQ3LwXxKg4VIHVtNX GoPCNjQuEmDXZqUGUcNFkiLWOyDCW8MJo9YZEtMRQw FF9CRdYkYUBaQgXrOWCtKRCfTBYbwk0VHIQeZFZpQRW6EwAeTHFrKQNlELffWIDrPCToWMcgYVDpFHKy NZ3OJtImDAGyNAC9UdMpDDTdOYAbab3VOMRcHLCaOAMkSIUnTQZdVVBwXItyAIJrTYX1YlM0AXFdMCAz HY2UBeMnDBKbGGQ1BQHmYWCxMUUvhh3YBOUhKPPyMl n6VNKgQAByOJJrVCseTKTpJLO4GXoqGEKzMMZzFH9AQcHhIKZlIZrkMkKyEKDbXCKhww3SRFPnVZTwPT WmZjHjMPJxGTQcPBueZUFuXXR3QIUqRKKvDFJmOG7YXuEaOTFdZSjsDkkqQSWlFVEdnd3YCSCyIDFuNT G3DLNfNWHcMWGpYGlqBFIsTUE4LmN8NHZpOMNgOV3G UiBoPYJcEFO7AIMgHVTbVCQyac4LOZFdRLRcSQW7QQRwVRLeDGMhUJkzIHTrQVA5PEQ0OXSpZAOkDZ3Q WeOuWBKiKcOsHGodKXIdTHJvno2FcIPkiWsska4TBOuRGg1UzRzsKIDdJSdaTd8hfRMcGRSiKYLUFr4G qnOmQSFlMOQBNYjyCOPrJJMlZFdxSXHnWJXyIBV8JX FhAWMmXmZ0YlZ1ZeJ9BIi1MqW6IIYmOATlSTP6ZdMsEKWpTdDsQIQiOXm5EcJpXyHuWJI+YN5yXEl+Pg 7Wm6QswmT3ahWhNFmfDICsAi8XRMRSF6SVWs== ID Date Data Source [id number] 07/05/2020 02:15:00 PM EST [facility] ([facility]) Name Value Range Interpretation Code Description Data Shelia rce(s) Supporting Document(s) Hemoglobin A1c/Hemoglobin.total in Blood 6.1 [facility] ([facility]) Glucose [Mass/volume] in Serum or Plasma 105 [facility] ([facility]) Procedure Social History Code Duration Value Status Description Data Source(s ) Alcohol intake 07/27/2020 12:00:00 AM EST Never completed [facility] Smoking 07/27/2020 12:00:00 AM EST Former smoker completed Former smoker [facility] Vital Signs ID Date Data Source UNK Name Value Range Interpretation Code Description Data Source(s) Oxygen saturation in Arterial blood by Pulse oximetry 96 % 96 % [facility] ([facility]) Body mass index (BMI) [Ratio] 34.8 kg/m2 34.8 k g/m2 [facility] ([facility]) Body weight 247.50 [lb_av] 247.50 [lb_av] [facility] ([facility]) Body height 70.7 [in_i] 70.7 [in_i] [facility] ([facility]) 5'10.70" Body temperature 97.5 [degF] 97.5 [degF] [facility] [facility] Heart rate 88 /min 88 /min [facility] ([facility]) Diastolic blood pressure 84 mm[Hg] 84 mm[Hg] [facility] ([facility]) Systolic blood pressure 144 mm[Hg] 144 mm[Hg] M [facility] ([facility]) Oxygen saturation in Arterial blood by Pulse oximetry 98 % 98 % [facility] Body mass index (BMI) [Ratio] 34.45 kg/m2 34.45 kg/m2 [facility] Body weight 115.214 kg 115.214 kg [facility] Body height 182.9 cm 182.9 cm [facility] Heart rate 88 /min 88 /min [facility] Diastolic blood pressure 80 mm[Hg] 80 mm[Hg] [facility] Systolic blood pressure 148 mm[Hg] 148 mm[Hg] [facility] Oxygen saturation in Arterial blood by Pulse oximetry 98 % 98 % [facility] ([facility]) Body mass index (BMI) [Ratio] 36.8 kg/m2 36.8 k g/m2 [facility] ([facility]) Body weight 261.44 [lb_av] 261.44 [lb_av] [facility] T ([facility]) Body height 70.7 [in_i] 70.7 [in_i] [facility] ([facility]) 5'10.70" Body temperature 96.3 [degF] 96.3 [degF] [facility] ([facility]) Heart rate 92 /min 92 /min [facility] ([facility]) Diastolic blood pressure 76 mm[Hg] 76 mm[Hg] [facility] ([facility] Systolic blood pressure 126 mm[Hg] 126 mm[Hg] M [facility] ([facility] Oxygen saturation in Arterial blood by Pulse oximetry 98 % 98 % [facility] ([facility] Body mass index (BMI) [Ratio] 34.8 kg/m2 34.8 k g/m2 [facility] ([facility] Body weight 247.38 [lb_av] 247.38 [lb_av] [facility] T ([facility] Body height 70.7 [in_i] 70.7 [in_i] [facility] ([facility] 5'10.70" Heart rate 88 /min 88 /min [facility] ([facility] Diastolic blood pressure 80 mm[Hg] 80 mm[Hg] [facility] ([facility] Systolic blood pressure 142 mm[Hg] 142 mm[Hg] [facility] ([facility] Patient Treatment Plan of Care Planned Activity Planned Date Details Description Data Source (s) Glipizide 5 MG Oral Tablet 06/15/2020 12:00:00 AM EST [facility] apixaban 5 MG Oral Tablet [Eliquis] 06/09/2020 12:00:00 AM EDT [facility] Fluoxetine 20 MG Oral Capsule 05/26/2020 12:00:00 AM EDT [facility] latanoprost 0.05 MG/ML Ophthalmic Solution 05/24/2020 12:00:00 AM E DT [facility] tramadol hydrochloride 50 MG Oral Tablet 07/14/2019 12:00:00 AM EST [facility] Fluoxetine 60 MG Oral Tablet 07/23/2015 12:00:00 AM EST [facility]
[2020-10-08] MEDS ORDERED: NS 500 ML IV ONE (15:15)
[2020-10-08 16:16] VITALS: BP 131/73
--- NOTE | 2020-10-08 17:18 | ECGEPIP ---
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
--- NOTE | 2020-10-08 17:24 | ECGEPIP ---
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
--- NOTE | 2020-10-09 07:54 | ECGEPIP ---
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
== END 2020-10-08 18:50 | disposition home or self-care (01) ==
LOC: M ED 12:43
DX: R07.9 Chest pain, unspecified (principal); I10 Essential (primary) hypertension; I48.91 Unspecified atrial fibrillation; E78.5 Hyperlipidemia, unspecified; Z79.84 Long term (current) use of oral hypoglycemic drugs; Z79.899 Other long term (current) drug therapy; Z88.1 Allergy status to other antibiotic agents; Z88.2 Allergy status to sulfonamides
CPT/HCPCS: 71045; 71275; 80047; 80076; 83690; 83880; 84484; 85025; 93005; 93041; 94760; 96360; 99285; Q9967

== ENCOUNTER → 2021-01-24 | Outpatient (REF) | payer MEDICARE ==
[~2021-01-24] MED LIST changes: +GLIP10TA PO
== END ==
LOC: M WUC 12:38
PROVIDERS: ATTEND Physician Assistant
DX: L02.416 Cutaneous abscess of left lower limb (principal)

== ENCOUNTER → 2021-11-11 | Outpatient (CLI) | payer MEDICARE ==
[~2021-11-11] MED LIST changes: -POTA10TA14 PO; +POTA1TAB24 PO; +VERA240T65 PO; -VERA24TASA PO
[2021-11-11 13:02] LABS: HEMATOCRIT 38.7 % (42.0-52.0); HEMOGLOBIN 13.2 g/dl (13.5-17.5); MEAN CORPUSCULAR HEMOGLOBIN 32.2 pg (27.0-33.0); MEAN CORPUSCULAR HGB CONC 34.1 g/dl (32.0-36.5); MEAN CORPUSCULAR VOLUME 94.4 fl (80.0-96.0); PLATELET COUNT, AUTOMATED 199 10^3/uL (150-450); WHITE BLOOD COUNT 7.8 10^3/uL (4.0-10.0)
[2021-11-11 13:37] LABS: ALBUMIN 3.6 GM/DL (3.2-5.2); BILIRUBIN,TOTAL 0.5 MG/DL (0.2-1.0); CALCIUM LEVEL 9.6 MG/DL (8.8-10.2); CHOLESTEROL RISK RATIO 2.613 (<5); CREATININE FOR GFR 1.6 MG/DL (0.70-1.30); GLOMERULAR FILTRATION RATE 45.6 (>42); POTASSIUM SERUM 4.1 MEQ/L (3.5-5.1); PROSTATIC SPECIFIC AG MONITOR 0.35 NG/ML (< 4.00); THYROID STIMULATING HORMONE 0.872 uIU/ML (0.358-3.740); TOTAL PROTEIN 6.9 GM/DL (6.4-8.2)
[2021-11-11 13:54] LABS: HEMOGLOBIN A1c 5.9 %
== END ==
LOC: M LAB 11:18
PROVIDERS: ATTEND Family Medicine
DX: E03.9 Hypothyroidism, unspecified (principal); I10 Essential (primary) hypertension; R53.83 Other fatigue; Z79.899 Other long term (current) drug therapy

== ENCOUNTER → 2022-01-19 | Outpatient (CLI) | payer MEDICARE, OTHER ==
[2022-01-19 15:25] LABS: HEMATOCRIT 40.4 % (42.0-52.0); HEMOGLOBIN 13.7 g/dl (13.5-17.5); MEAN CORPUSCULAR HEMOGLOBIN 32.2 pg (27.0-33.0); MEAN CORPUSCULAR HGB CONC 33.9 g/dl (32.0-36.5); MEAN CORPUSCULAR VOLUME 95.1 fl (80.0-96.0); PLATELET COUNT, AUTOMATED 184 10^3/uL (150-450); RED BLOOD COUNT 4.25 10^6/uL (4.30-6.10); WHITE BLOOD COUNT 5.5 10^3/uL (4.0-10.0)
[2022-01-19 16:01] LABS: ALBUMIN 3.9 GM/DL (3.2-5.2); BILIRUBIN,TOTAL 0.6 MG/DL (0.2-1.0); CALCIUM LEVEL 10.5 MG/DL (8.8-10.2); CREATININE FOR GFR 1.65 MG/DL (0.70-1.30); POTASSIUM SERUM 4.6 MEQ/L (3.5-5.1); THYROID STIMULATING HORMONE 0.812 uIU/ML (0.358-3.740); TOTAL PROTEIN 7.1 GM/DL (6.4-8.2)
[2022-01-19 16:04] LABS: TOTAL 25(OH) VITAMIN D 111.8 NG/ML (30.0-100.0)
[2022-01-19 17:11] LABS: HEMOGLOBIN A1c 6.1 %
== END ==
LOC: M PLAIMG 12:13
PROVIDERS: ATTEND Family Medicine
DX: I10 Essential (primary) hypertension (principal); R53.83 Other fatigue; Z12.5 Encounter for screening for malignant neoplasm of prostate
CPT/HCPCS: 36415; 71046; 80053; 80061; 82306; 83036; 84403; 84443; 85027; G0103

== ENCOUNTER → 2022-05-25 | Outpatient (CLI) | payer MEDICARE, OTHER ==
[~2022-05-25] MED LIST changes: +ACET300T48 PO; +DIGO0.123 PO
== END ==
LOC: M LABSMTC 09:51
PROVIDERS: ATTEND Anesthesiology
DX: Z01.818 Encounter for other preprocedural examination (principal); Z11.52 Encounter for screening for COVID-19

== ENCOUNTER 2022-05-29 11:38 | Day surgery (SDC) | payer MEDICARE, OTHER ==
[~2022-05-29] VITALS: Ht 182.9 cm; Wt 110.1 kg
[2022-05-29] MEDS: NS 1,000 ML IV ONE (12:23)
[2022-05-29] MEDS ORDERED: fentaNYL 100 MCG/2 ML INJECTION As Ordered ONE (13:33)
[2022-05-29] MEDS ORDERED: propofoL 200 MG/20 ML VIAL As Ordered ONE ×2 (13:36→13:59)
[2022-05-29] MEDS ORDERED: LIDOCAINE 2% 100MG/5ML SDV (FOR ANES.) As Ordered ONE (13:36)
[2022-05-29 14:20] VITALS: BP 135/75
== END 2022-05-29 14:40 | disposition home or self-care (01) ==
LOC: M OPP 11:38
PROVIDERS: ATTEND Internal Medicine Gastroenterology
DX: D50.9 Iron deficiency anemia, unspecified (principal); K64.0 First degree hemorrhoids; K57.30 Diverticulosis of large intestine without perforation or abscess without bleeding; K29.70 Gastritis, unspecified, without bleeding; K63.89 Other specified diseases of intestine; Z79.01 Long term (current) use of anticoagulants; Z79.02 Long term (current) use of antithrombotics/antiplatelets; Z79.84 Long term (current) use of oral hypoglycemic drugs; Z79.891 Long term (current) use of opiate analgesic; Z79.899 Other long term (current) drug therapy; Z88.2 Allergy status to sulfonamides; I48.91 Unspecified atrial fibrillation; E11.9 Type 2 diabetes mellitus without complications; I12.9 Hypertensive chronic kidney disease with stage 1 through stage 4 chronic kidney disease, or unspecified chronic kidney disease; N40.0 Benign prostatic hyperplasia without lower urinary tract symptoms; N18.2 Chronic kidney disease, stage 2 (mild); F32.9 Major depressive disorder, single episode, unspecified; F41.9 Anxiety disorder, unspecified; Z87.891 Personal history of nicotine dependence
CPT/HCPCS: 43239; 45378; 88305; 88342; J3010

== ENCOUNTER → 2022-06-06 | Outpatient (CLI) | payer MEDICARE | LOC: M PLALAB 14:43 | PROVIDERS: ATTEND Internal Medicine Gastroenterology | DX: D64.9 Anemia, unspecified (principal) ==

== ENCOUNTER 2022-08-30 23:53 | Inpatient (IN) | payer MEDICARE ==
[~2022-08-30] VITALS: Ht 185.4 cm; Wt 113.9 kg
[2022-08-31 01:23] LABS: BASO # 0.1 10^3/uL (0.0-0.2); BASO % 0.5 % (0.0-1.0); EOS # 0.2 10^3/uL (0.0-0.5); EOS % 1.1 % (0.0-3.0); HEMATOCRIT 40.4 % (42.0-52.0); HEMOGLOBIN 13.6 g/dl (13.5-17.5); LYMPH % 13.3 % (24.0-44.0); MEAN CORPUSCULAR HEMOGLOBIN 31.4 pg (27.0-33.0); MEAN CORPUSCULAR HGB CONC 33.7 g/dl (32.0-36.5); MEAN CORPUSCULAR VOLUME 93.3 fl (80.0-96.0); MONO # 0.8 10^3/uL (0.0-0.8); MONO % 5.5 % (2.0-8.0); NEUTROPHILS # 11.9 10^3/uL (1.5-8.5); NEUTROPHILS % 79.1 % (36.0-66.0); PLATELET COUNT, AUTOMATED 300 10^3/uL (150-450); RED BLOOD COUNT 4.33 10^6/uL (4.30-6.10)
[2022-08-31 01:33] LABS: INR 1.17; PROTHROMBIN TIME 15.1 SECONDS (12.5-14.5)
[2022-08-31] MEDS ORDERED: NS 1,000 ML IV ONE (01:35)
[2022-08-31 01:36] LABS: VENOUS BASE EXCESS 1.1 (-2.0-2.0); VENOUS HCO3 27.3 MEQ/L (23.0-27.0); VENOUS O2 SATURATION 66.1 % (60.0-80.0); VENOUS PARTIAL PRESSURE CO2 49.5 mmHg (38.0-50.0); VENOUS PARTIAL PRESSURE O2 34.4 mmHg (30.0-50.0); VENOUS STANDARD HCO3 24.7 MEQ/L; VENOUS TOTAL CO2 28.9 MEQ/L (24.0-28.0)
[2022-08-31 01:46] LABS: CPK CREATINE PHOSPHOKINASE 42 U/L (46-171)
[2022-08-31 01:55] LABS: ALBUMIN 3.5 G/DL (3.2-5.2); ALKALINE PHOSPHATASE 83 U/L (46-116); ALT/SGPT 14 U/L (7.0-40); AST/SGOT 15 U/L (<34); BILIRUBIN,TOTAL 0.5 MG/DL (0.3-1.2); BLOOD UREA NITROGEN 27 MG/DL (9-23); CALCIUM LEVEL 14.5 MG/DL (8.3-10.6); CARBON DIOXIDE LEVEL 28 MMOL/L (20-31); CHLORIDE LEVEL 95 MMOL/L (98-107); CK-MB VALUE MASS < 1.0 NG/ML (<3.6); CREATININE FOR GFR 2.18 MG/DL (0.70-1.30); GLOMERULAR FILTRATION RATE 31.8 (>42); GLUCOSE, FASTING 70 MG/DL (74-106); MB/CK RELATIVE INDEX 2.38 (< OR =4); POTASSIUM SERUM 4.1 MMOL/L (3.5-5.1); SODIUM LEVEL 133 MMOL/L (136-145); THYROID STIMULATING HORMONE 2.187 uIU/ML (0.55-4.78); THYROXINE (T4) 8.6 UG/DL (4.5-10.9); TOTAL PROTEIN 7.1 G/DL (5.7-8.2)
[2022-08-31 02:16] LABS: PTH INTACT 29.7 PG/ML (18.5-88.0)
[2022-08-31 02:42] LABS: TOTAL 25(OH) VITAMIN D 93.7 NG/ML (20.0-100.0)
[2022-08-31] MEDS: NS 1,000 ML IV SCH ×2 (04:50→11:45)
[2022-08-31 05:07] LABS: MAGNESIUM LEVEL 2.2 MG/DL (1.8-2.4)
[2022-08-31 05:09] LABS: PHOSPHORUS LEVEL 4.5 MG/DL (2.4-5.1)
[2022-08-31] MEDS ORDERED: VITA250T7 PO (05:30)
[2022-08-31] MEDS ORDERED: DIGO0.123 PO (05:30)
[2022-08-31] MEDS ORDERED: POTA-149 PO (05:30)
[2022-08-31] MEDS ORDERED: CEPH500C PO (05:30)
[2022-08-31] MEDS ORDERED: RISATAB3 PO (05:30)
[2022-08-31] MEDS ORDERED: LOMO2.5T PO (05:30)
[2022-08-31] MEDS ORDERED: FLUO-96 PO (05:30)
[2022-08-31] MEDS ORDERED: VITA250T4 PO (05:30)
[2022-08-31] MEDS ORDERED: GLIP5TAB8 PO (05:30)
[2022-08-31] MEDS ORDERED: ACET-897 PO (05:30)
[2022-08-31] MEDS ORDERED: HOME MED LIST COMPLETE! XX SCH (05:30)
[2022-08-31] MEDS ORDERED: ELIQ5TAB PO (05:30)
[2022-08-31] MEDS ORDERED: FURO40TA2 PO (05:30)
[2022-08-31] MEDS: cefTRIAXone SOD 1 GM in D5W MINI-BAG PLUS 50 ML IV SCH (05:42)
[2022-08-31] MEDS ORDERED: DEXTROSE 50% 50ML SYRINGE IV PRN (05:45)
[2022-08-31] MEDS ORDERED: GLUCAGON INJ 1MG VIAL SC PRN (05:45)
[2022-08-31] MEDS ORDERED: GLUCOSE 4GM CHEW TABLET PO PRN (05:45)
[2022-08-31] MEDS ORDERED: PANTOPRAZOLE 20 MG TAB PO ONE (05:45)
[2022-08-31] MEDS: VERAPAMIL 120MG SR TAB PO SCH ×2 (08:12→20:14)
[2022-08-31] MEDS: APIXABAN 5 MG TAB (ELIQUIS) PO SCH ×2 (08:12→20:13)
[2022-08-31] MEDS: DIGOXIN 0.125 MG TAB PO SCH (08:13)
[2022-08-31] MEDS: FLUoxetine 20MG CAP PO SCH ×2 (08:13→20:13)
[2022-08-31] MEDS: POTASSIUM CHLORIDE 10MEQ SR TABLET PO SCH ×2 (08:13→20:14)
[2022-08-31] MEDS ORDERED: FUROSEMIDE 40 MG TAB PO SCH ×2 (09:00→17:00)
[2022-08-31] MEDS ORDERED: lisinopriL 40MG TAB PO SCH (09:00)
[2022-08-31] MEDS: ACETAMINOPHEN 500 MG TAB PO SCH ×2 (09:25→20:14)
[2022-08-31] MEDS: CYANOCOBALAMIN 250 MCG TABLET PO SCH ×2 (09:25→20:14)
[2022-08-31] MEDS: FINASTERIDE 5MG TAB PO SCH (09:25)
[2022-08-31] MEDS: INSULIN LISPRO (NovoLOG) PER UNIT SC SCH ×4 (09:26→20:14)
[2022-08-31 10:50] LABS: ALBUMIN 3.1 G/DL (3.2-5.2); BILIRUBIN,TOTAL 0.4 MG/DL (0.3-1.2); CALCIUM LEVEL 13.9 MG/DL (8.3-10.6); CREATININE FOR GFR 2.2 MG/DL (0.70-1.30); GLOMERULAR FILTRATION RATE 31.5 (>42); POTASSIUM SERUM 3.9 MMOL/L (3.5-5.1)
[2022-08-31] MEDS ORDERED: ZOLEDRONIC ACID 3 MG in D5W 100 ML IV ONE ×2 (11:00→13:00)
[2022-08-31 14:08] LABS: ALBUMIN 2.8 G/DL (3.2-5.2); BILIRUBIN,TOTAL 0.3 MG/DL (0.3-1.2); CALCIUM LEVEL 13.6 MG/DL (8.3-10.6); CREATININE FOR GFR 2.18 MG/DL (0.70-1.30); GLOMERULAR FILTRATION RATE 31.8 (>42); POTASSIUM SERUM 4.3 MMOL/L (3.5-5.1); TOTAL PROTEIN 5.5 G/DL (5.7-8.2)
[2022-08-31 15:14] VITALS: BP 155/73
[2022-08-31 16:09] LABS: PHOSPHORUS LEVEL 3.5 MG/DL (2.4-5.1)
[2022-08-31 19:44] VITALS: BP 178/92
[2022-08-31 19:54] VITALS: BP 160/80
[2022-08-31] MEDS: TAMSULOSIN 0.4 MG CAP PO SCH (20:12)
[2022-08-31] MEDS: LEVEMIR (INSULIN DETEMIR) 1 UNITS/0.01ML SC SCH (20:15)
[2022-08-31 20:53] LABS: TOTAL PROTEIN,RANDOM URINE < 6.0 MG/DL (0.0-14.0)
[2022-09-01] VITALS (11 sets, daily range): BP systolic 128–190; BP diastolic 60–94
[2022-09-01 04:50] LABS: HEMATOCRIT 35.6 % (42.0-52.0); HEMOGLOBIN 11.9 g/dl (13.5-17.5); MEAN CORPUSCULAR HEMOGLOBIN 31.6 pg (27.0-33.0); MEAN CORPUSCULAR HGB CONC 33.4 g/dl (32.0-36.5); MEAN CORPUSCULAR VOLUME 94.7 fl (80.0-96.0); PLATELET COUNT, AUTOMATED 183 10^3/uL (150-450); RED BLOOD COUNT 3.76 10^6/uL (4.30-6.10); WHITE BLOOD COUNT 6.2 10^3/uL (4.0-10.0)
[2022-09-01 05:24] LABS: ALBUMIN 2.9 G/DL (3.2-5.2); BILIRUBIN,TOTAL 0.5 MG/DL (0.3-1.2); CALCIUM LEVEL 12.6 MG/DL (8.3-10.6); CREATININE FOR GFR 2.1 MG/DL (0.70-1.30); GLOMERULAR FILTRATION RATE 33.2 (>42); POTASSIUM SERUM 4.1 MMOL/L (3.5-5.1); TOTAL PROTEIN 5.9 G/DL (5.7-8.2)
[2022-09-01] MEDS: cefTRIAXone SOD 1 GM in D5W MINI-BAG PLUS 50 ML IV SCH (06:21)
[2022-09-01] MEDS: INSULIN LISPRO (NovoLOG) PER UNIT SC SCH ×5 (07:30→21:41)
[2022-09-01] MEDS: ACETAMINOPHEN 500 MG TAB PO SCH ×2 (08:18→21:40)
[2022-09-01] MEDS: TAMSULOSIN 0.4 MG CAP PO SCH ×2 (08:19→21:40)
[2022-09-01] MEDS: FINASTERIDE 5MG TAB PO SCH (08:19)
[2022-09-01] MEDS: FLUoxetine 20MG CAP PO SCH (08:19)
[2022-09-01] MEDS: POTASSIUM CHLORIDE 10MEQ SR TABLET PO SCH (08:19)
[2022-09-01] MEDS: VERAPAMIL 120MG SR TAB PO SCH ×2 (08:19→18:35)
[2022-09-01] MEDS: APIXABAN 5 MG TAB (ELIQUIS) PO SCH ×2 (08:20→21:40)
[2022-09-01] MEDS: CYANOCOBALAMIN 250 MCG TABLET PO SCH ×2 (08:20→21:40)
[2022-09-01] MEDS: DIGOXIN 0.125 MG TAB PO SCH (08:20)
[2022-09-01] MEDS: NS 1,000 ML IV SCH ×2 (08:21→17:56)
[2022-09-01] MEDS ORDERED: amLODIPine 5 MG TAB PO ONE ×2 (08:30→16:50)
[2022-09-01] MEDS ORDERED: FARX1TAB3 PO (10:15)
[2022-09-01] MEDS ORDERED: SITA50TAB PO (10:15)
[2022-09-01 11:01] LABS: HEMOGLOBIN A1c 5.5 % (4.0-6.0)
[2022-09-01] MEDS ORDERED: FUROSEMIDE 20 MG TAB PO ONE (18:20)
[2022-09-01] MEDS: LEVEMIR (INSULIN DETEMIR) 1 UNITS/0.01ML SC SCH (21:40)
[2022-09-02] VITALS (8 sets, daily range): BP systolic 120–192; BP diastolic 58–98
[2022-09-02] MEDS ORDERED: amLODIPine 5 MG TAB PO ONE ×2 (00:40→05:35)
[2022-09-02] MEDS ORDERED: hydrALAZINE 20MG/ML 1ML VIAL IV ONE (03:45)
[2022-09-02 05:33] LABS: HEMATOCRIT 34.3 % (42.0-52.0); HEMOGLOBIN 11.5 g/dl (13.5-17.5); MEAN CORPUSCULAR HEMOGLOBIN 31.4 pg (27.0-33.0); MEAN CORPUSCULAR HGB CONC 33.5 g/dl (32.0-36.5); MEAN CORPUSCULAR VOLUME 93.7 fl (80.0-96.0); PLATELET COUNT, AUTOMATED 164 10^3/uL (150-450); RED BLOOD COUNT 3.66 10^6/uL (4.30-6.10); WHITE BLOOD COUNT 4.3 10^3/uL (4.0-10.0)
[2022-09-02 06:00] LABS: ALBUMIN 2.9 G/DL (3.2-5.2); BILIRUBIN,TOTAL 0.4 MG/DL (0.3-1.2); CALCIUM LEVEL 12.2 MG/DL (8.3-10.6); CREATININE FOR GFR 2.29 MG/DL (0.70-1.30); GLOMERULAR FILTRATION RATE 30.1 (>42); POTASSIUM SERUM 3.8 MMOL/L (3.5-5.1); TOTAL PROTEIN 5.7 G/DL (5.7-8.2)
[2022-09-02] MEDS: CYANOCOBALAMIN 250 MCG TABLET PO SCH ×2 (08:19→21:47)
[2022-09-02] MEDS: TAMSULOSIN 0.4 MG CAP PO SCH ×2 (08:19→21:47)
[2022-09-02] MEDS: APIXABAN 5 MG TAB (ELIQUIS) PO SCH ×2 (08:19→21:47)
[2022-09-02] MEDS: DIGOXIN 0.125 MG TAB PO SCH (08:19)
[2022-09-02] MEDS: FINASTERIDE 5MG TAB PO SCH (08:19)
[2022-09-02] MEDS: METOPROLOL TARTRATE 100MG TAB PO SCH ×2 (08:20→21:46)
[2022-09-02] MEDS: ACETAMINOPHEN 500 MG TAB PO SCH ×2 (08:21→21:46)
[2022-09-02] MEDS: NS 1,000 ML IV SCH ×2 (11:11→21:44)
[2022-09-02] MEDS: **hydrALAZINE HCL** 25 MG TAB PO SCH ×3 (11:11→21:47)
[2022-09-02] MEDS: CALCITONIN SALMON (MIACALCIN) 400INTERNATIONAL UNITS/2ML VIAL SQ SCH ×2 (11:50→21:58)
[2022-09-02] MEDS: INSULIN LISPRO (NovoLOG) PER UNIT SC SCH ×3 (11:50→22:00)
[2022-09-02] MEDS ORDERED: POTASSIUM CHLORIDE 10MEQ SR TABLET PO ONE (13:00)
[2022-09-02] MEDS ORDERED: FUROSEMIDE 20MG/2ML VIAL IV ONE (17:00)
[2022-09-02 17:08] LABS: FREE KAPPA LIGHT CHAINS SERUM 76.5 mg/L (3.3-19.4); FREE LAMBDA LIGHT CHAINS SERUM 52.1 mg/L (5.7-26.3); KAPPA/LAMBDA RATIO SERUM 1.47 (0.26-1.65)
[2022-09-02 19:44] LABS: ALBUMIN 2.7 G/DL (3.2-5.2); BILIRUBIN,TOTAL 0.2 MG/DL (0.3-1.2); CALCIUM LEVEL 11.4 MG/DL (8.3-10.6); CREATININE FOR GFR 2.18 MG/DL (0.70-1.30); GLOMERULAR FILTRATION RATE 31.8 (>42); POTASSIUM SERUM 4.1 MMOL/L (3.5-5.1); TOTAL PROTEIN 5.5 G/DL (5.7-8.2)
[2022-09-02] MEDS ORDERED: FLUoxetine 20MG CAP PO SCH (21:00)
[2022-09-02] MEDS: LEVEMIR (INSULIN DETEMIR) 1 UNITS/0.01ML SC SCH (21:48)
[2022-09-03 01:15] VITALS: BP 146/76
[2022-09-03 03:34] VITALS: BP 133/73
[2022-09-03 05:35] LABS: HEMATOCRIT 32.5 % (42.0-52.0); HEMOGLOBIN 10.8 g/dl (13.5-17.5); MEAN CORPUSCULAR HEMOGLOBIN 31.8 pg (27.0-33.0); MEAN CORPUSCULAR HGB CONC 33.2 g/dl (32.0-36.5); MEAN CORPUSCULAR VOLUME 95.6 fl (80.0-96.0); PLATELET COUNT, AUTOMATED 166 10^3/uL (150-450)
[2022-09-03 06:04] LABS: ALBUMIN 2.6 G/DL (3.2-5.2); BILIRUBIN,TOTAL 0.3 MG/DL (0.3-1.2); CALCIUM LEVEL 10.6 MG/DL (8.3-10.6); CREATININE FOR GFR 2.09 MG/DL (0.70-1.30); GLOMERULAR FILTRATION RATE 33.4 (>42); POTASSIUM SERUM 3.8 MMOL/L (3.5-5.1); TOTAL PROTEIN 5.4 G/DL (5.7-8.2)
[2022-09-03 08:00] VITALS: BP 164/92
[2022-09-03] MEDS: NS 1,000 ML IV SCH (08:18)
[2022-09-03] MEDS: ACETAMINOPHEN 500 MG TAB PO SCH (08:18)
[2022-09-03 08:19] VITALS: BP 164/92
[2022-09-03] MEDS: TAMSULOSIN 0.4 MG CAP PO SCH (08:19)
[2022-09-03] MEDS: APIXABAN 5 MG TAB (ELIQUIS) PO SCH (08:19)
[2022-09-03] MEDS: **hydrALAZINE HCL** 25 MG TAB PO SCH (08:19)
[2022-09-03] MEDS: DIGOXIN 0.125 MG TAB PO SCH (08:19)
[2022-09-03] MEDS: METOPROLOL TARTRATE 100MG TAB PO SCH (08:19)
[2022-09-03] MEDS: FINASTERIDE 5MG TAB PO SCH (08:19)
[2022-09-03] MEDS: CYANOCOBALAMIN 250 MCG TABLET PO SCH (08:20)
[2022-09-03] MEDS: INSULIN LISPRO (NovoLOG) PER UNIT SC SCH ×2 (08:20→11:53)
[2022-09-03] MEDS ORDERED: METO100T5 PO (11:26)
[2022-09-03] MEDS ORDERED: FLUO-96 PO (11:26)
[2022-09-03] MEDS ORDERED: AMLO1TAB25 PO (11:27)
[2022-09-04 19:07] LABS: ALBUMIN 3.3 g/dL (2.9-4.4); ALPHA-1-GLOBULINS 0.2 g/dL (0.0-0.4); ALPHA-2-GLOBULINS 0.9 g/dL (0.4-1.0); BETA-1-GLOBULINS 0.8 g/dL (0.7-1.3); GAMMA GLOBULINS 0.6 g/dL (0.4-1.8); TOTAL PROTEIN ELECTROPHORESIS 5.9 g/dL (6.0-8.5)
== END 2022-09-03 13:00 | disposition home or self-care (01) | DRG 641 ==
LOC: M ED 23:53 → M ED INP 08-31 04:20 → ENRESERV 08-31 14:06 → M PCU 08-31 14:58
PROVIDERS: ADMIT Family Medicine; ATTEND Internal Medicine
DX: E83.52 Hypercalcemia (principal); I13.0 Hypertensive heart and chronic kidney disease with heart failure and stage 1 through stage 4 chronic kidney disease, or unspecified chronic kidney disease; N17.9 Acute kidney failure, unspecified; N39.0 Urinary tract infection, site not specified; E87.1 Hypo-osmolality and hyponatremia; E87.20 Acidosis, unspecified; I42.8 Other cardiomyopathies; I50.32 Chronic diastolic (congestive) heart failure; E11.22 Type 2 diabetes mellitus with diabetic chronic kidney disease; I48.91 Unspecified atrial fibrillation; F41.9 Anxiety disorder, unspecified; R91.1 Solitary pulmonary nodule; F32.A Depression, unspecified; I25.10 Atherosclerotic heart disease of native coronary artery without angina pectoris; E78.5 Hyperlipidemia, unspecified; N40.0 Benign prostatic hyperplasia without lower urinary tract symptoms; K90.0 Celiac disease; N18.30 Chronic kidney disease, stage 3 unspecified; Z96.641 Presence of right artificial hip joint; Z98.49 Cataract extraction status, unspecified eye; Z87.891 Personal history of nicotine dependence; Z79.01 Long term (current) use of anticoagulants; Z79.84 Long term (current) use of oral hypoglycemic drugs; Z79.899 Other long term (current) drug therapy; Z88.2 Allergy status to sulfonamides

== ENCOUNTER → 2022-09-10 | Outpatient (CLI) | payer MEDICARE ==
[~2022-09-10] MED LIST changes: +ACET-897 PO; +AMLO1TAB25 PO; +CEPH500C PO; +FARX1TAB3 PO; +FLUO-96 PO; +GLIP5TAB8 PO; +LOMO2.5T PO; +METO100T5 PO; +POTA-149 PO; +RISATAB3 PO; +SITA50TAB PO; +VITA250T4 PO; +VITA250T7 PO
[2022-09-10 09:16] LABS: HEMATOCRIT 33.3 % (42.0-52.0); MEAN CORPUSCULAR HEMOGLOBIN 31.3 pg (27.0-33.0); MEAN CORPUSCULAR VOLUME 94.6 fl (80.0-96.0); PLATELET COUNT, AUTOMATED 267 10^3/uL (150-450); RED BLOOD COUNT 3.52 10^6/uL (4.30-6.10); WHITE BLOOD COUNT 8.7 10^3/uL (4.0-10.0)
[2022-09-10 09:31] LABS: BILIRUBIN,TOTAL 0.7 MG/DL (0.3-1.2); CALCIUM LEVEL 10.1 MG/DL (8.3-10.6); CREATININE FOR GFR 1.98 MG/DL (0.70-1.30); GLOMERULAR FILTRATION RATE 35.5 (>42); POTASSIUM SERUM 3.9 MMOL/L (3.5-5.1); TOTAL PROTEIN 6.1 G/DL (5.7-8.2)
[2022-09-10 09:33] LABS: THYROID STIMULATING HORMONE 1.486 uIU/ML (0.55-4.78); TOTAL 25(OH) VITAMIN D 102.2 NG/ML (20.0-100.0)
[2022-09-10 10:48] LABS: HEMOGLOBIN A1c 5.7 % (4.0-6.0)
[2022-09-10 11:10] LABS: PROSTATIC SPECIFIC AG MONITOR 0.06 NG/ML (< 4.00)
== END ==
LOC: M LAB 08:09
PROVIDERS: ATTEND Family Medicine
DX: I10 Essential (primary) hypertension (principal); R53.83 Other fatigue; Z79.899 Other long term (current) drug therapy

== ENCOUNTER → 2022-09-10 | Outpatient (CLI) | payer MEDICARE ==
[2022-09-10 09:30] LABS: CREATININE FOR GFR 1.99 MG/DL (0.70-1.30); GLOMERULAR FILTRATION RATE 35.3 (>42); POTASSIUM SERUM 3.9 MMOL/L (3.5-5.1)
== END ==
LOC: M LAB 08:11
PROVIDERS: ATTEND Internal Medicine
DX: Z53.9 Procedure and treatment not carried out, unspecified reason (principal)

== ENCOUNTER → 2023-03-16 | Outpatient (CLI) | payer MEDICARE ==
[2023-03-16 07:33] LABS: HEMATOCRIT 41.4 % (42.0-52.0); HEMOGLOBIN 13.6 g/dl (13.5-17.5); MEAN CORPUSCULAR HEMOGLOBIN 31.1 pg (27.0-33.0); MEAN CORPUSCULAR HGB CONC 32.9 g/dl (32.0-36.5); MEAN CORPUSCULAR VOLUME 94.7 fl (80.0-96.0); PLATELET COUNT, AUTOMATED 213 10^3/uL (150-450); RED BLOOD COUNT 4.37 10^6/uL (4.30-6.10); WHITE BLOOD COUNT 6.8 10^3/uL (4.0-10.0)
[2023-03-16 08:15] LABS: PROSTATIC SPECIFIC AG MONITOR 0.08 NG/ML (< 4.00)
[2023-03-16 08:20] LABS: THYROID STIMULATING HORMONE 2.336 uIU/ML (0.55-4.78); TOTAL 25(OH) VITAMIN D 69.7 NG/ML (20.0-100.0)
[2023-03-16 08:24] LABS: ALBUMIN 3.8 G/DL (3.2-5.2); BILIRUBIN,TOTAL 0.6 MG/DL (0.3-1.2); CALCIUM LEVEL 9.4 MG/DL (8.3-10.6); CHOLESTEROL RISK RATIO 3.44 (<5); CREATININE FOR GFR 2.12 MG/DL (0.70-1.30); GLOMERULAR FILTRATION RATE 32.9 (>42); HDL CHOLESTEROL 41.5 MG/DL (>40); LDL CHOLESTEROL 72.1 MG/DL (<100); NON-HDL-C 101.5 MG/DL; POTASSIUM SERUM 4.1 MMOL/L (3.5-5.1)
[2023-03-16 08:28] LABS: HEMOGLOBIN A1c 5.6 % (4.0-6.0)
== END ==
LOC: M LAB 07:08
PROVIDERS: ATTEND Family Medicine
DX: I10 Essential (primary) hypertension (principal); R97.20 Elevated prostate specific antigen [PSA]

== ENCOUNTER → 2023-11-01 | Outpatient (REF) | payer MEDICARE ==
[~2023-11-01] MED LIST changes: +GLIP5TAB17 PO; -GLIP5TAB8 PO
[2023-11-01 10:31] LABS: HEMATOCRIT 44.6 % (42.0-52.0); HEMOGLOBIN 14.7 g/dl (13.5-17.5); MEAN CORPUSCULAR HEMOGLOBIN 31.7 pg (27.0-33.0); MEAN CORPUSCULAR VOLUME 96.3 fl (80.0-96.0); PLATELET COUNT, AUTOMATED 226 10^3/uL (150-450); RED BLOOD COUNT 4.63 10^6/uL (4.30-6.10); WHITE BLOOD COUNT 7.8 10^3/uL (4.0-10.0)
[2023-11-01 10:48] LABS: HEMOGLOBIN A1c 6.1 % (4.0-6.0)
[2023-11-01 10:57] LABS: PROSTATIC SPECIFIC AG MONITOR 0.07 NG/ML (< 4.00)
[2023-11-01 11:01] LABS: THYROID STIMULATING HORMONE 3.489 uIU/ML (0.55-4.78)
[2023-11-01 11:03] LABS: ALBUMIN 3.8 G/DL (3.2-5.2); BILIRUBIN,TOTAL 0.4 MG/DL (0.3-1.2); CALCIUM LEVEL 8.9 MG/DL (8.3-10.6); CHOLESTEROL RISK RATIO 3.29 (<5); CREATININE FOR GFR 2.51 MG/DL (0.70-1.30); HDL CHOLESTEROL 39.1 MG/DL (>40); LDL CHOLESTEROL 58.5 MG/DL (<100); NON-HDL-C 89.9 MG/DL; POTASSIUM SERUM 4.9 MMOL/L (3.5-5.1); TOTAL PROTEIN 6.9 G/DL (5.7-8.2)
== END ==
LOC: M PLALAB 09:55
PROVIDERS: ATTEND Family Medicine
DX: I10 Essential (primary) hypertension (principal); R53.83 Other fatigue; E03.9 Hypothyroidism, unspecified; R97.20 Elevated prostate specific antigen [PSA]

== ENCOUNTER 2024-02-27 14:11 | Inpatient (IN) | payer MEDICARE ==
[~2024-02-27] VITALS: Ht 182.9 cm; Wt 108.8 kg
[~2024-02-27 14:11] MED LIST changes: +VITA250T27 PO; -VITA250T4 PO
[2024-02-27] MEDS ORDERED: CINA30TA4 PO (14:41)
[2024-02-27] MEDS ORDERED: VERA240C PO (14:41)
[2024-02-27] MEDS ORDERED: LISI30TA4 PO (14:41)
[2024-02-27] MEDS ORDERED: TREL1AER PO (14:43)
[2024-02-27 15:33] LABS: BASO # 0.1 10^3/uL (0.0-0.2); BASO % 0.9 % (0.0-1.0); EOS # 0.1 10^3/uL (0.0-0.5); EOS % 1.6 % (0.0-3.0); HEMATOCRIT 43.4 % (42.0-52.0); HEMOGLOBIN 14.4 g/dl (13.5-17.5); LYMPH # 0.9 10^3/uL (1.5-5.0); LYMPH % 15.5 % (24.0-44.0); MEAN CORPUSCULAR HEMOGLOBIN 32.1 pg (27.0-33.0); MEAN CORPUSCULAR HGB CONC 33.2 g/dl (32.0-36.5); MEAN CORPUSCULAR VOLUME 96.9 fl (80.0-96.0); MONO # 0.3 10^3/uL (0.0-0.8); MONO % 5.5 % (2.0-8.0); NEUTROPHILS # 4.3 10^3/uL (1.5-8.5); PLATELET COUNT, AUTOMATED 220 10^3/uL (150-450); RED BLOOD COUNT 4.48 10^6/uL (4.30-6.10); WHITE BLOOD COUNT 5.7 10^3/uL (4.0-10.0)
[2024-02-27 15:59] LABS: ALBUMIN 3.8 G/DL (3.2-5.2); BILIRUBIN,TOTAL 0.5 MG/DL (0.3-1.2); CALCIUM LEVEL 8.6 MG/DL (8.3-10.6); CREATININE FOR GFR 2.56 MG/DL (0.70-1.30); GLOMERULAR FILTRATION RATE 26.4 (>42); POTASSIUM SERUM 4.2 MMOL/L (3.5-5.1)
[2024-02-27 16:20] LABS: CK-MB VALUE MASS 2.4 NG/ML (<3.6)
[2024-02-27 16:21] LABS: MB/CK RELATIVE INDEX 4.61 (< OR =4)
[2024-02-27 19:01] LABS: CK-MB VALUE MASS 1.2 NG/ML (<3.6)
[2024-02-27 19:05] LABS: MB/CK RELATIVE INDEX 2.35 (< OR =4)
[2024-02-27] MEDS: dilTIAZem 25MG/5ML VIAL IV STA ×2 (20:15→22:26)
[2024-02-27] MEDS: NS 500 ML IV SCH (23:10)
[2024-02-27] MEDS ORDERED: GLUCAGON INJ 1MG VIAL SC PRN (23:15)
[2024-02-27] MEDS ORDERED: GLUCOSE 4 GM CHEW PO PRN (23:15)
[2024-02-27] MEDS ORDERED: DEXTROSE 50% 50ML SYRINGE IV PRN (23:15)
[2024-02-27 23:58] LABS: THYROID STIMULATING HORMONE 2.877 uIU/ML (0.55-4.78)
[2024-02-28] MEDS ORDERED: FERR1TAB8 PO (00:26)
[2024-02-28] MEDS ORDERED: MULT-40 PO (00:26)
[2024-02-28] MEDS ORDERED: METF-877 PO (00:26)
[2024-02-28] MEDS ORDERED: FARX1TAB3 PO (00:26)
[2024-02-28] MEDS ORDERED: CYAN-1 PO (00:26)
[2024-02-28] MEDS ORDERED: DIGO0.253 PO (00:26)
[2024-02-28] MEDS ORDERED: FLUO-96 PO (00:26)
[2024-02-28] MEDS ORDERED: CINA30TA5 PO (00:26)
[2024-02-28] MEDS ORDERED: VERA240T64 PO (00:26)
[2024-02-28] MEDS ORDERED: MECL-86 PO (00:26)
[2024-02-28] MEDS ORDERED: HOME MED LIST COMPLETE! XX SCH (00:30)
[2024-02-28] MEDS: VERAPAMIL 120MG SR TAB PO ONE (01:14)
[2024-02-28] MEDS: ACETAMINOPHEN 500 MG TAB PO ONE (02:35)
[2024-02-28] MEDS: METOPROLOL TART 25 MG TABLET PO SCH (05:58)
[2024-02-28 05:59] VITALS: O2SAT 90
[2024-02-28 06:10] LABS: HEMATOCRIT 41.5 % (42.0-52.0); HEMOGLOBIN 14.1 g/dl (13.5-17.5); MEAN CORPUSCULAR HEMOGLOBIN 32.3 pg (27.0-33.0); MEAN CORPUSCULAR VOLUME 95.2 fl (80.0-96.0); PLATELET COUNT, AUTOMATED 184 10^3/uL (150-450); RED BLOOD COUNT 4.36 10^6/uL (4.30-6.10); WHITE BLOOD COUNT 6.8 10^3/uL (4.0-10.0)
[2024-02-28 06:41] LABS: DIGOXIN LEVEL 0.9 NG/ML (0.8-2.0)
[2024-02-28 06:46] LABS: ALBUMIN 3.4 G/DL (3.2-5.2); BILIRUBIN,TOTAL 0.6 MG/DL (0.3-1.2); CALCIUM LEVEL 8.5 MG/DL (8.3-10.6); CREATININE FOR GFR 2.33 MG/DL (0.70-1.30); GLOMERULAR FILTRATION RATE 29.4 (>42); MAGNESIUM LEVEL 2.4 MG/DL (1.8-2.4); TOTAL PROTEIN 6.3 G/DL (5.7-8.2)
[2024-02-28] MEDS: ADVAIR HFA 230/21MCG INHALER INH SCH (08:11)
[2024-02-28 08:26] LABS: HEMOGLOBIN A1c 5.9 % (4.0-6.0)
[2024-02-28] MEDS: INSULIN LISPRO (NovoLOG) PER UNIT SC SCH ×2 (08:39→21:00)
[2024-02-28] MEDS: VERAPAMIL 120MG SR TAB PO SCH (09:00)
[2024-02-28] MEDS: TAMSULOSIN 0.4 MG CAP PO SCH (09:11)
[2024-02-28] MEDS: FINASTERIDE 5MG TAB PO SCH (09:12)
[2024-02-28] MEDS: DIGOXIN 0.125 MG TAB PO SCH (09:12)
[2024-02-28] MEDS: APIXABAN 5 MG TAB (ELIQUIS) PO SCH (09:12)
[2024-02-28] MEDS: SIMVASTATIN 40 MG TAB PO SCH (09:13)
[2024-02-28] MEDS: FLUoxetine 20MG CAP PO SCH (09:13)
[2024-02-28 12:32] VITALS: BP 136/84; TEMP 98.1; O2SAT 99
[2024-02-28] MEDS: ACETAMINOPHEN TAB 650MG DOSE (2X325MG) PO PRN (18:20)
[2024-02-28 20:00] VITALS: BP 128/89; TEMP 98.1; O2SAT 100
[2024-02-29] VITALS: BP 148/96; TEMP 98.2; O2SAT 98
[2024-02-29 00:15] VITALS: BP 148/96
[2024-02-29 08:00] VITALS: TEMP 97.3; O2SAT 99
[2024-02-29] MEDS ORDERED: TAMSULOSIN 0.4 MG CAP As Ordered ONE (08:14)
[2024-02-29] MEDS ORDERED: INSULIN LISPRO (NovoLOG) PER UNIT As Ordered ONE (08:15)
[2024-02-29] MEDS ORDERED: FINASTERIDE 5MG TAB As Ordered ONE (08:15)
[2024-02-29] MEDS ORDERED: DIGOXIN 0.125 MG TAB As Ordered ONE (08:15)
[2024-02-29] MEDS ORDERED: SIMVASTATIN 40 MG TAB As Ordered ONE (08:15)
[2024-02-29] MEDS ORDERED: APIXABAN 5 MG TAB (ELIQUIS) As Ordered ONE (08:15)
[2024-02-29] MEDS ORDERED: FLUoxetine 20MG CAP As Ordered ONE (08:16)
[2024-02-29 12:00] VITALS: BP 123/91; TEMP 98.1; O2SAT 100
[2024-02-29] MEDS ORDERED: METOPROLOL TART 25 MG TABLET As Ordered ONE (12:26)
[2024-02-29] MEDS ORDERED: METO50TA7 PO (12:43)
[2024-02-29] MEDS ORDERED: SITA50TAB PO (12:46)
[2024-02-29 12:59] LABS: ALBUMIN 3.3 G/DL (3.2-5.2); BILIRUBIN,TOTAL 0.7 MG/DL (0.3-1.2); CALCIUM LEVEL 8.7 MG/DL (8.3-10.6); CREATININE FOR GFR 2.18 MG/DL (0.70-1.30); GLOMERULAR FILTRATION RATE 31.7 (>42); MAGNESIUM LEVEL 2.4 MG/DL (1.8-2.4); PHOSPHORUS LEVEL 4.6 MG/DL (2.4-5.1); POTASSIUM SERUM 4.4 MMOL/L (3.5-5.1); TOTAL PROTEIN 6.1 G/DL (5.7-8.2)
[2024-02-29 13:00] LABS: ALBUMIN 3.3 G/DL (3.2-5.2); BILIRUBIN,TOTAL 0.7 MG/DL (0.3-1.2); CALCIUM LEVEL 8.7 MG/DL (8.3-10.6); CREATININE FOR GFR 2.22 MG/DL (0.70-1.30); GLOMERULAR FILTRATION RATE 31.1 (>42); POTASSIUM SERUM 4.5 MMOL/L (3.5-5.1); TOTAL PROTEIN 6.2 G/DL (5.7-8.2)
[2024-02-29 16:32] LABS: BASO # 0.1 10^3/uL (0.0-0.2); EOS # 0.1 10^3/uL (0.0-0.5); EOS % 2.9 % (0.0-3.0); HEMATOCRIT 42.7 % (42.0-52.0); HEMOGLOBIN 14.2 g/dl (13.5-17.5); LYMPH # 1.1 10^3/uL (1.5-5.0); LYMPH % 21.6 % (24.0-44.0); MEAN CORPUSCULAR HEMOGLOBIN 31.7 pg (27.0-33.0); MEAN CORPUSCULAR HGB CONC 33.3 g/dl (32.0-36.5); MEAN CORPUSCULAR VOLUME 95.3 fl (80.0-96.0); MONO # 0.4 10^3/uL (0.0-0.8); NEUTROPHILS # 3.2 10^3/uL (1.5-8.5); NEUTROPHILS % 65.9 % (36.0-66.0); PLATELET COUNT, AUTOMATED 192 10^3/uL (150-450); RED BLOOD COUNT 4.48 10^6/uL (4.30-6.10); WHITE BLOOD COUNT 4.9 10^3/uL (4.0-10.0)
== END 2024-02-29 15:20 | disposition home or self-care (01) | DRG 914 ==
LOC: M ED 14:11 → M ED INP 14:12 → OBSVTOIN 02-28 06:45 → M MSPAV 02-28 12:27
PROVIDERS: ADMIT Preventive Medicine Undersea and Hyperbaric Medicine; ATTEND Internal Medicine
PROC: B246ZZZ Ultrasonography of Right and Left Heart (ICD-10-PCS; principal; 2024-02-28)
DX: S29.9XXA Unspecified injury of thorax, initial encounter (principal); I48.11 Longstanding persistent atrial fibrillation; J44.9 Chronic obstructive pulmonary disease, unspecified; E11.22 Type 2 diabetes mellitus with diabetic chronic kidney disease; N18.30 Chronic kidney disease, stage 3 unspecified; N40.0 Benign prostatic hyperplasia without lower urinary tract symptoms; I27.20 Pulmonary hypertension, unspecified; R91.1 Solitary pulmonary nodule; R07.89 Other chest pain; Z87.891 Personal history of nicotine dependence; Z79.01 Long term (current) use of anticoagulants; Z79.84 Long term (current) use of oral hypoglycemic drugs; Z79.899 Other long term (current) drug therapy; Z88.2 Allergy status to sulfonamides; W06.XXXA Fall from bed, initial encounter; Y92.013 Bedroom of single-family (private) house as the place of occurrence of the external cause; Y99.8 Other external cause status; Y93.9 Activity, unspecified

== ENCOUNTER 2024-05-24 10:06 | Inpatient (IN) | payer MEDICARE ==
[~2024-05-24] VITALS: Ht 182.9 cm; Wt 108.6 kg
[~2024-05-24 10:06] MED LIST changes: +CINA30TA4 PO; +CINA30TA5 PO; +CYAN-1 PO; +DIGO0.253 PO; +FERR1TAB8 PO; +LISI30TA4 PO; +MECL-86 PO; +METF-877 PO; +METO50TA7 PO; +MULT-40 PO; +TREL1AER PO; +VERA240C PO; +VERA240T64 PO
[2024-05-24 11:09] LABS: BASO % 0.4 % (0.0-1.0); EOS % 0.2 % (0.0-3.0); HEMATOCRIT 39.4 % (42.0-52.0); HEMOGLOBIN 12.8 g/dl (13.5-17.5); LYMPH # 0.3 10^3/uL (1.5-5.0); MEAN CORPUSCULAR HEMOGLOBIN 31.2 pg (27.0-33.0); MEAN CORPUSCULAR HGB CONC 32.5 g/dl (32.0-36.5); MEAN CORPUSCULAR VOLUME 96.1 fl (80.0-96.0); MONO # 0.4 10^3/uL (0.0-0.8); MONO % 4.4 % (2.0-8.0); NEUTROPHILS # 8.1 10^3/uL (1.5-8.5); NEUTROPHILS % 90.4 % (36.0-66.0); PLATELET COUNT, AUTOMATED 255 10^3/uL (150-450)
[2024-05-24] MEDS: METOPROLOL 5 MG/5 ML VIAL IV SCH (11:19)
[2024-05-24 11:29] LABS: BLOOD UREA NITROGEN 31 MG/DL (9-23); CALCIUM LEVEL 8.8 MG/DL (8.3-10.6); CARBON DIOXIDE LEVEL 25 MMOL/L (20-31); CHLORIDE LEVEL 103 MMOL/L (98-107); CK-MB VALUE MASS < 1.0 NG/ML (<3.6); CREATININE FOR GFR 1.75 MG/DL (0.70-1.30); DIGOXIN LEVEL 0.3 NG/ML (0.8-2.0); GLOMERULAR FILTRATION RATE 40.9 (>42); GLUCOSE, FASTING 196 MG/DL (74-106); MAGNESIUM LEVEL 1.8 MG/DL (1.8-2.4); POTASSIUM SERUM 4.3 MMOL/L (3.5-5.1); SODIUM LEVEL 137 MMOL/L (136-145)
[2024-05-24 11:31] LABS: THYROID STIMULATING HORMONE 4.049 uIU/ML (0.55-4.78)
[2024-05-24 11:32] LABS: CPK CREATINE PHOSPHOKINASE 57 U/L (46-171); FREE T4 1.25 NG/DL (0.89-1.76); MB/CK RELATIVE INDEX 1.75 (< OR =4)
[2024-05-24 11:34] LABS: INR 1.17; PARTIAL THROMBOPLASTIN TIME 32.5 SECONDS (24.8-34.2); PROTHROMBIN TIME 14.5 SECONDS (12.5-14.5)
[2024-05-24] MEDS: DIGOXIN INJ 0.5 MG/2 ML AMP IV STA (12:13)
[2024-05-24 12:16] LABS: CK-MB VALUE MASS < 1.0 NG/ML (<3.6)
[2024-05-24 12:22] LABS: CPK CREATINE PHOSPHOKINASE 56 U/L (46-171); MB/CK RELATIVE INDEX 1.78 (< OR =4)
[2024-05-24] MEDS: METOPROLOL TART 50 MG TAB PO ONE (12:53)
[2024-05-24] MEDS ORDERED: VENTAER INH (13:58)
[2024-05-24] MEDS ORDERED: CALC1CAP31 PO (13:58)
[2024-05-24] MEDS ORDERED: METO50TA7 PO (13:58)
[2024-05-24] MEDS ORDERED: POTA1TAB23 PO (13:58)
[2024-05-24] MEDS ORDERED: METF10004 PO (13:58)
[2024-05-24] MEDS ORDERED: HOME MED LIST COMPLETE! XX SCH (14:00)
[2024-05-24 17:48] VITALS: BP 160/97; TEMP 98.6
[2024-05-24] MEDS ORDERED: METOPROLOL TART 25 MG TABLET PO SCH (18:00)
[2024-05-24] MEDS: METOPROLOL TART 50 MG TAB PO SCH (18:04)
[2024-05-24] MEDS: oxyCODONE 5MG TAB PO ONE (18:08)
[2024-05-24] MEDS: ACETAMINOPHEN 500 MG TAB PO ONE (18:08)
[2024-05-24] MEDS: TAMSULOSIN 0.4 MG CAP PO SCH (18:35)
[2024-05-24] MEDS: glipiZIDE (GLUCOTROL) 5 MG TAB PO SCH (18:35)
[2024-05-24 19:41] VITALS: BP 123/65; TEMP 97.8; O2SAT 97
[2024-05-24] MEDS: SYMBICORT 160/4.5MCG INHALER 6GM INH SCH (20:26)
[2024-05-24] MEDS: APIXABAN 5 MG TAB (ELIQUIS) PO SCH (20:31)
[2024-05-24] MEDS: FLUoxetine 20MG CAP PO SCH (20:31)
[2024-05-24] MEDS: POTASSIUM CHLORIDE 10MEQ SR TABLET PO SCH (20:31)
[2024-05-24] MEDS: DOCUSATE SODIUM 100MG CAPSULE PO SCH (20:31)
[2024-05-24] MEDS: FINASTERIDE 5MG TAB PO SCH (20:31)
[2024-05-24 23:52] VITALS: BP 146/92; TEMP 98.1; O2SAT 97
[2024-05-25 03:57] VITALS: BP 162/94; TEMP 98.2; O2SAT 98
[2024-05-25] MEDS: ACETAMINOPHEN 500 MG TAB PO SCH (06:09)
[2024-05-25 07:29] VITALS: BP 152/80; TEMP 97.9; O2SAT 96
[2024-05-25] MEDS ORDERED: INSULIN LISPRO (NovoLOG) PER UNIT SC SCH ×2 (07:30→21:00)
[2024-05-25] MEDS ORDERED: GLUCOSE 4 GM CHEW PO PRN (07:45)
[2024-05-25] MEDS ORDERED: GLUCAGON INJ 1MG VIAL SC PRN (07:45)
[2024-05-25] MEDS ORDERED: DEXTROSE 50% 50ML SYRINGE IV PRN (07:45)
[2024-05-25] MEDS ORDERED: PILL CUTTER 1 EACH XX PRN (08:00)
[2024-05-25] MEDS: TIOTROPIUM INHALER/CAPSULE (SPIRIVA) INH SCH (09:04)
[2024-05-25 09:48] VITALS: BP 152/80
[2024-05-25] MEDS: DAPAGLIFLOZIN PROPANEDIOL 10MG TABLET (FARXIGA) PO SCH (09:48)
[2024-05-25] MEDS: oxyCODONE 5MG TAB PO SCH (09:50)
[2024-05-25] MEDS: FUROSEMIDE 40 MG TAB PO SCH (09:50)
[2024-05-25] MEDS: SIMVASTATIN 40 MG TAB PO SCH (09:51)
[2024-05-26] MEDS ORDERED: DIGOXIN 0.125 MG TAB PO SCH (09:00)
== END 2024-05-25 10:34 | disposition home or self-care (01) | DRG 309 ==
LOC: M ED 10:06 → EDBD 10:06 → M ED INP 15:19 → M PCU 17:17
PROVIDERS: ADMIT Internal Medicine Nephrology; ATTEND Internal Medicine Nephrology
DX: I48.91 Unspecified atrial fibrillation (principal); I13.0 Hypertensive heart and chronic kidney disease with heart failure and stage 1 through stage 4 chronic kidney disease, or unspecified chronic kidney disease; I50.32 Chronic diastolic (congestive) heart failure; R29.6 Repeated falls; Z96.641 Presence of right artificial hip joint; M16.12 Unilateral primary osteoarthritis, left hip; S80.02XA Contusion of left knee, initial encounter; W19.XXXA Unspecified fall, initial encounter; Y92.002 Bathroom of unspecified non-institutional (private) residence as the place of occurrence of the external cause; E11.22 Type 2 diabetes mellitus with diabetic chronic kidney disease; N18.32 Chronic kidney disease, stage 3b; E53.8 Deficiency of other specified B group vitamins; R26.89 Other abnormalities of gait and mobility; E78.00 Pure hypercholesterolemia, unspecified; N40.0 Benign prostatic hyperplasia without lower urinary tract symptoms; I34.0 Nonrheumatic mitral (valve) insufficiency; E61.1 Iron deficiency; F32.A Depression, unspecified; J44.9 Chronic obstructive pulmonary disease, unspecified; E21.1 Secondary hyperparathyroidism, not elsewhere classified; Z98.49 Cataract extraction status, unspecified eye; Z87.891 Personal history of nicotine dependence; Z79.01 Long term (current) use of anticoagulants; Z79.84 Long term (current) use of oral hypoglycemic drugs; Z79.899 Other long term (current) drug therapy; Z88.2 Allergy status to sulfonamides

== ENCOUNTER → 2025-05-04 | Outpatient (CLI) | payer MEDICARE ==
[~2025-05-04] MED LIST changes: +CALC1CAP31 PO; +CYAN250T5 PO; -FLOM0.4C39 PO; +LISI40TA10 PO; -LISI40TA4 PO; +POTA1TAB23 PO; +TAMS-18 PO; +VENTAER INH; -VITA250T7 PO
[2025-05-04 18:50] LABS: CALCIUM LEVEL 8.4 MG/DL (8.3-10.6); CARBON DIOXIDE LEVEL 27.0 MMOL/L (20-31); CHLORIDE LEVEL 106.0 MMOL/L (98-107); CHOLESTEROL LEVEL 118.0 MG/DL (<200); CHOLESTEROL RISK RATIO 2.35 (<5); CREATININE FOR GFR 1.81 MG/DL (0.70-1.30); GLOMERULAR FILTRATION RATE 38.8 (>42); LDL CHOLESTEROL 46.1 MG/DL (<100); NON-HDL-C 67.9 MG/DL; POTASSIUM SERUM 4.2 MMOL/L (3.5-5.1); SODIUM LEVEL 142.0 MMOL/L (136-145); TRIGLYCERIDES LEVEL 109.0 MG/DL (<150)
[2025-05-04 19:04] LABS: ESTIMATED AVERAGE GLUCOSE 143.0 MG/DL (60-110)
[2025-05-05 14:51] LABS: PSA SCREENING 0.08 NG/ML (< 4.00)
== END ==
LOC: M PLALAB 16:50
PROVIDERS: ATTEND Student in an Organized Health Care Education/Training Program
DX: E11.9 Type 2 diabetes mellitus without complications (principal); E78.5 Hyperlipidemia, unspecified; N25.81 Secondary hyperparathyroidism of renal origin; N18.32 Chronic kidney disease, stage 3b; I50.20 Unspecified systolic (congestive) heart failure

== ENCOUNTER → 2025-05-05 | Outpatient (CLI) | payer MEDICARE ==
[~2025-05-05] MED LIST changes: +ISOVUE-370 76% 100 ML VIAL ONE
== END ==
LOC: M PLAIMG 13:31
PROVIDERS: ATTEND Internal Medicine Nephrology
DX: R31.9 Hematuria, unspecified (principal); K80.20 Calculus of gallbladder without cholecystitis without obstruction; J90 Pleural effusion, not elsewhere classified; R18.8 Other ascites
CPT/HCPCS: 74178; Q9967

== ENCOUNTER → 2025-06-15 | Outpatient (REF) | payer MEDICARE ==
[~2025-06-15] MED LIST changes: -ISOVUE-370 76% 100 ML VIAL ONE; +LISI30TA4
== END ==
LOC: M SFHCPLAZ 14:28
PROVIDERS: ATTEND Student in an Organized Health Care Education/Training Program
DX: Z53.9 Procedure and treatment not carried out, unspecified reason (principal)

== ENCOUNTER 2025-06-23 10:03 | Emergency (ER) | payer MEDICARE ==
[~2025-06-23] VITALS: Ht 182.9 cm; Wt 99.3 kg
[~2025-06-23 10:03] MED LIST changes: -LISI30TA4
[2025-06-23 10:10] VITALS: TEMP 96.2
[2025-06-23 10:44] LABS: BASO # 0.1 10^3/uL (0.0-0.2); BASO % 1.1 % (0.0-1.0); EOS # 0.2 10^3/uL (0.0-0.5); EOS % 3.0 % (0.0-3.0); LYMPH # 0.7 10^3/uL (1.5-5.0); LYMPH % 10.9 % (24.0-44.0); MONO # 0.4 10^3/uL (0.0-0.8); MONO % 5.9 % (2.0-8.0); NEUTROPHILS # 5.2 10^3/uL (1.5-8.5); NEUTROPHILS % 78.8 % (36.0-66.0); PLATELET COUNT, AUTOMATED 183 10^3/uL (150-450)
[2025-06-23 11:12] LABS: CALCIUM LEVEL 9.1 MG/DL (8.3-10.6); CARBON DIOXIDE LEVEL 23.0 MMOL/L (20-31); CHLORIDE LEVEL 106.0 MMOL/L (98-107); CREATININE FOR GFR 1.54 MG/DL (0.70-1.30); GLOMERULAR FILTRATION RATE 47.0 (>42); POTASSIUM SERUM 4.0 MMOL/L (3.5-5.1); SODIUM LEVEL 141.0 MMOL/L (136-145)
[2025-06-23] MEDS ORDERED: LISI30TA4 (11:39)
[2025-06-23] MEDS ORDERED: METO100T5 PO (11:39)
[2025-06-23] MEDS: OXYMETAZOLINE 0.05% NASAL SPRAY ONE (11:41)
[2025-06-23] MEDS: METOPROLOL TARTRATE 100 MG TAB PO ONE (11:53)
[2025-06-23 12:28] LABS: INR 1.16
[2025-06-23] MEDS: ACETAMINOPHEN *IV* 1,000 MG in IV 1 EA IV ONE (13:05)
[2025-06-23] MEDS ORDERED: HOME MED LIST COMPLETE! XX SCH (13:05)
[2025-06-23 13:13] VITALS: BP 142/110
[2025-06-23] MEDS: LABETALOL 100 MG/20 ML VIAL IV STA (13:13)
[2025-06-23 13:36] VITALS: BP 161/92
[2025-06-23 14:06] VITALS: O2SAT 96
[2025-06-23 15:03] LABS: PLATELET COUNT, AUTOMATED 183 10^3/uL (150-450)
== END 2025-06-23 15:48 | disposition home or self-care (01) ==
LOC: EDBD 10:03 → M ED 10:03
DX: R04.0 Epistaxis (principal); I11.0 Hypertensive heart disease with heart failure; I48.91 Unspecified atrial fibrillation; I50.22 Chronic systolic (congestive) heart failure; E11.9 Type 2 diabetes mellitus without complications; J44.9 Chronic obstructive pulmonary disease, unspecified; N18.9 Chronic kidney disease, unspecified; N40.0 Benign prostatic hyperplasia without lower urinary tract symptoms; Z87.891 Personal history of nicotine dependence; Z88.2 Allergy status to sulfonamides; Z79.1 Long term (current) use of non-steroidal anti-inflammatories (NSAID); Z79.51 Long term (current) use of inhaled steroids; Z79.01 Long term (current) use of anticoagulants; Z79.899 Other long term (current) drug therapy; Z79.810 Long term (current) use of selective estrogen receptor modulators (SERMs)
CPT/HCPCS: 80048; 85025; 85027; 85610; 85730; 96365; 96375; 99284; J0134; J1920